=== PATIENT | female | born 1980 ===

== ENCOUNTER 2020-09-16 08:32 | Outpatient (REF) | payer OTHER, SELFPAY ==
[2020-09-16 10:28] LABS: Glucose Urine UA NEG (NEG); Leukocyte Esterase Urine NEG (NEG); Nitrite Urine NEG (NEG); Specific Gravity - Urine 1.025 (1.005-1.025); Urine Blood 2+ (NEG); Urine Ketones NEG (NEG); Urine Protein NEG (NEG-TRACE)
[2020-09-16 10:31] LABS: HIV AB/AG Nonreactive (Nonreactive); HIV Num 1 0.23 S/CO (0.00-0.99); ~HepC Num1 0.13 S/CO (0.00-0.79); ~Hepatitis C Antibody Nonreactive (Nonreactive)
[2020-09-16 10:32] LABS: Alanine Aminotransferase 21 U/L (0-31); Albumin Level 3.9 g/dL (3.5-5.0); Alkaline Phosphatase 51 U/L (39-117); Anion Gap 13 (12-20); Aspartate Amino Transferase 18 U/L (5-31); Bilirubin Total 0.6 mg/dL (0.0-1.0); Blood Urea Nitrogen 11 mg/dL (9-16); Calcium 8.8 mg/dL (8.4-10.2); Carbon Dioxide 24 mmol/L (22-29); Chloride 105 mmol/L (96-108); Cholesterol 174 mg/dL; Estimated Glomerular Filt Rate > 60; Glucose Random 91 mg/dL (60-115); HDL Cholesterol 49 mg/dL; LDL Cholesterol Calculated 110 mg/dl; Lipase 20 U/L (8-78); Potassium 4.5 mmol/l (3.3-5.1); Sodium 137 mmol/L (135-145); Triglycerides 75 mg/dL
[2020-09-16 10:33] LABS: Appearance Urine CLEAR; Color Urine YELLOW
[2020-09-16 10:34] LABS: TSH reflex Free T4 0.99 mIU/mL (0.32-4.0)
[2020-09-16 10:39] LABS: Syphilis Screen Nonreactive (Nonreactive)
[2020-09-16 10:46] LABS: Squamous Epithelial Cell Urine 2+ /LPF; WBC Urine 0 /HPF (0-4)
== END 2020-09-16 08:33 | disposition home or self-care (01) ==
LOC: HO.LAB 08:32
PROVIDERS: PCP Registered Nurse; Visit Provider Registered Nurse
DX: Z00.00 Encounter for general adult medical examination without abnormal findings (principal); L65.9 Nonscarring hair loss, unspecified; R10.13 Epigastric pain; Z11.3 Encounter for screening for infections with a predominantly sexual mode of transmission
CPT/HCPCS: 80053; 80061; 81001; 83690; 84443; 86780; 86803; 87389

== ENCOUNTER → 2020-10-01 09:26 | Outpatient (BNVA) | payer OTHER, SELFPAY | PROVIDERS: PCP Registered Nurse; Visit Provider Physician Assistant | DX: R12 Heartburn (principal); R19.5 Other fecal abnormalities; R19.7 Diarrhea, unspecified; A04.8 Other specified bacterial intestinal infections | CPT/HCPCS: 99212 ==

== ENCOUNTER 2020-10-14 08:44 | Outpatient (REF) | payer OTHER, SELFPAY ==
[2020-10-14 10:10] LABS: MANUAL DIFF FLAG NO
[2020-10-14 10:22] LABS: Basophils Percent Auto 0.4 % (0-2); Hematocrit 36.6 % (37-47); Hemoglobin 12.2 g/dl (12.0-16.0); Imm Gran Abs Auto 0.02 X10*3/uL (0.00-0.03); Imm Gran Pct Auto 0.3 % (0.0-0.4); Lymphocytes Absolute Auto 2.1 X10*3/uL (1.2-4.9); Lymphocytes Percent Auto 26.9 % (20-40); Mean Corpuscular HGB Conc 33.3 g/dl (31.0-35.0); Mean Corpuscular Hemoglobin 30.4 pg (27.0-33.0); Mean Corpuscular Volume 91.3 fL (80-98); Mean Platelet Volume 10.4 fL (9.4-12.3); Monocytes Absolute Auto 0.4 X10*3/uL (0.1-1.2); Monocytes Percent Auto 4.9 % (2-11); Neutrophils Absolute Auto 4.3 X10*3/uL (2.0-8.3); Neutrophils Percent Auto 54.5 % (45-73); Platelet Count 328 X10*3/uL (160-400); Red Blood Count 4.01 X10*6/uL (4.20-5.50); Red Cell Distribution Width 12.6 % (11.0-16.0); White Blood Count 7.9 X10*3/uL (4.8-10.8)
[2020-10-14 11:35] LABS: Erythrocyte Sedimentation Rate 29 MM/HR (0-20)
[2020-10-15 14:07] LABS: Transglutaminase IgA 1 U/mL
[2020-10-15 18:28] LABS: CRP High Sensitivity 4.1 mg/L
[2020-10-17 14:52] LABS: Endomysial IgA Antibody Negative (Negative)
== END 2020-10-14 08:45 | disposition home or self-care (01) ==
LOC: HO.LAB 08:44
PROVIDERS: PCP Registered Nurse; Visit Provider Physician Assistant
DX: R19.7 Diarrhea, unspecified (principal); R19.5 Other fecal abnormalities
CPT/HCPCS: 36415; 83516; 85025; 85652; 86141; 86255; 86256

== ENCOUNTER → 2020-10-22 08:24 | Outpatient (BNVA) | payer OTHER, SELFPAY | PROVIDERS: PCP Registered Nurse; Visit Provider Physician Assistant | DX: Z76.89 Persons encountering health services in other specified circumstances (principal) ==

== ENCOUNTER 2021-10-13 09:22 | Outpatient (REF) | payer SELFPAY ==
[2021-10-13 10:29] LABS: COVID-19 Test Negative (Negative)
== END 2021-10-13 09:23 | disposition home or self-care (01) ==
LOC: HO.LAB 09:22
PROVIDERS: Visit Provider Internal Medicine
DX: Z20.822 Contact with and (suspected) exposure to COVID-19 (principal)
CPT/HCPCS: 36415; 87635; C9803

== ENCOUNTER 2021-10-20 08:47 | Outpatient (REF) | payer SELFPAY ==
[2021-10-20 11:56] LABS: Binax Internal Control QC Valid; Binax Now Covid-19 Ag Negative (Negative)
== END 2021-10-20 08:48 | disposition home or self-care (01) ==
LOC: HO.LAB 08:47
PROVIDERS: Visit Provider Internal Medicine
DX: Z20.822 Contact with and (suspected) exposure to COVID-19 (principal)
CPT/HCPCS: 36415; C9803

== ENCOUNTER 2024-03-03 12:52 | Emergency (ER) | payer OTHER, SELFPAY ==
--- NOTE | ~2024-03-03 | CT_ITS ---
EXAMINATION: CT ABDOMEN AND PELVIS WITHOUT CONTRAST CLINICAL INFORMATION: Rectal bleeding. COMPARISON: 07/08/2017 TECHNIQUE: Multidetector volumetric imaging was performed from the superior aspect of the liver through the pubic symphysis. Sagittal and coronal reformatted images were obtained on the technologist's workstation. This CT examination was performed using dose optimization techniques as appropriate, variously including the following: *Automated exposure control *Adjustment of mA and/or kV according to patient size (this includes techniques or standardized protocols for targeted exams where dose is matched to indication/reason for exam; i.e. extremities or head) *Use of iterative reconstruction technique DLP: 723 mGy-cm FINDINGS: LUNG BASES: The visualized lung bases are unremarkable. LIVER, GALLBLADDER, AND BILIARY TREE: The liver is normal in size, shape, and attenuation. No focal hepatic lesion or biliary ductal dilatation is present. The gallbladder is unremarkable with no evidence of radiopaque gallstones, gallbladder wall thickening, or obvious pericholecystic inflammatory changes. PANCREAS: There is a contour bulge and calcification distal body of the pancreas with increased attenuation relative to the remaining pancreatic parenchyma covering an area approximately 3.1 cm. A similar finding was seen on prior study. SPLEEN: Unremarkable. ADRENAL GLANDS: Unremarkable. KIDNEYS AND URETERS: The kidneys are normal in size, shape, and attenuation. No hydronephrosis, hydroureter, or calculi seen. No perinephric stranding. BLADDER: Unremarkable. GASTROINTESTINAL TRACT: The small and large bowel are unremarkable. The appendix is unremarkable. ABDOMINAL WALL: No significant hernia is appreciated. LYMPH NODES: Normal. VASCULAR: Unremarkable. PELVIC VISCERA: Unremarkable. OSSEOUS STRUCTURES: Unremarkable. CT/CT abdomen pelvis wo IV con IMPRESSION: 1. No acute finding. 2. Contour bulge and calcification distal body of the pancreas with increased attenuation relative to the remaining pancreatic parenchyma. A similar finding was seen on prior study. Fleischner guidelines were followed.
[2024-03-03 13:35] VITALS: BP 127/71; PULSE 94; RESP 18; TEMP 36.2; O2SAT 98; BMI 37.4
--- NOTE | 2024-03-03 13:35 | ED.GENADULT ---
HPI - General Adult General Chief complaint: General Medical Stated complaint: Rectal bleed Time Seen by Provider: 03/03/24 22:21 Source: patient Mode of arrival: ambulatory Limitations: no limitations History of Present Illness HPI narrative: Patient's history of gastritis comes here for bright red rectal bleed off and on for 6 months painless mixed with the stool does have family history of Crohn's disease but patient never had colonoscopy done no blood clot no weight loss no epigastric does have diffuse lower abdominal discomfort no history of hemorrhoids Related Data Home Medications ?Medication ?Instructions ?Recorded ?Confirmed pantoprazole 40 mg tablet,delayed 40 mg PO DAILY 10/01/20 10/22/20 release Previous Rx's ?Medication ?Instructions ?Recorded dicyclomine 10 mg capsule 10 mg PO TID #90 caps 10/01/20 hydrocortisone acetate 25 mg 25 mg PA BID #12 ea 03/04/24 rectal suppository (Anusol-HC) Allergies Allergy/AdvReac Type Severity Reaction Status Date / Time No Known Allergies Allergy Unverified 03/03/24 13:39 [No Known Allergies*] Review of Systems Review of Systems: Yes all other systems are reviewed and are negative [facility] Past Medical History Medical History Change in stool Heartburn Surgical History History of Family History Family History Father Alive and well Mother Alive and well Social History Social History Alcohol intake: never Smoked in Last 30 Days: Yes Use of substances other than those prescribed or required for medical reasons: No Substance Use Type: Marijuana Advance Directives: No Advance Directives on File: No Do you have a plan to hurt others: No Plan Patient : No Physical Exam ED Vital Signs: Vital Signs - 24 hr 03/03/24 13:35 03/03/24 21:11 03/03/24 22:42 Temperature 97.2 F 98.3 F 98.2 F Pulse Rate 94 84 81 Respiratory Rate 18 18 20 Blood Pressure 127/71 134/78 132/76 Pulse Oximetry 98 100 98 Oxygen Delivery Method Room Air Room Air Room Air 03/04/24 02:00 Temperature 98.4 F Pulse Rate 80 Respiratory Rate 16 Blood Pressure 117/50 L Pulse Oximetry 97 Oxygen Delivery Method Room Air BMI result Body Mass Index 37.4 Appearance: Alert. Oriented X3. No acute distress. Eyes: No pallor or icterus ENT: Pharynx normal. Oral Mucosa moist Neck: Normal inspection. Neck supple. CVS: Normal heart rate and rhythm. Pulses normal. Respiratory: No respiratory distress. Equal air entry bilateral, no wheezing/rales/rhonchi Abdomen: Soft no focal tenderness. Bowel sounds are present, no mass palpable, no CVA tenderness Skin: Skin warm and dry. Normal skin color. Normal skin turgor. Extremities: No lower extremity edema. No calf tenderness Neuro: Oriented X 3. Course Course Course Narrative: This is an RME: Additional HPI, ROS, PE not included below will be deferred to primary provider. RME assessment and note performed by: Carlotta Carcamo PA-C This is a 58-eoiz-hwi-female, hx of GERD, who presents to the ER with complaints of blood in stool x 1 month. Pt states that she had an episode of bloody stool last month which resolved. She states that since yesterday, she has had bright red blood in stool. No diarrhea. Reporting some abdominal cramping. Plan: Labs, UA Reevaluation(s) Reevaluation #1: The patient signed out to me by the previous physician pending the results of a CT scan of the abdomen and pelvis. The CT scan is negative. Presumptive diagnosis is rectal bleeding from probable internal hemorrhoids. She will be discharged with a prescription for Anusol. She number of the field return repairer and the general surgeon on-call for follow up. Time: 03:05 Medical Decision Making Lab Data MDM Lab Attestation statement: I reviewed the patient's lab results. 03/03/24 13:42 03/03/24 13:42 Labs: Lab Results 03/03/24 Range/Units 13:42 WBC 8.1 (4.8-10.8) X10*3/uL RBC 4.23 (4.20-5.50) X10*6/uL Hgb 12.7 (12.0-16.0) g/dl Hct 36.8 L (37.0-47.0) % MCV 87.0 (80.0-98.0) fL MCH 30.0 (27.0-33.0) pg MCHC 34.5 (31.0-35.0) g/dl RDW 13.0 (11.0-16.0) % Plt Count 303 (160-400) X10*3/uL MPV 9.9 (9.4-12.3) fL Immature Gran % (Auto) 0.2 (0.0-0.4) % Neut % (Auto) 62.1 (45-73) % Lymph % (Auto) 29.3 (20-40) % [place] % (Auto) 4.1 (2-11) % Eos % (Auto) 3.7 (0-4) % Baso % (Auto) 0.6 (0-2) % Lymph # (Auto) 2.4 (1.2-4.9) X10*3/uL Oxford # (Auto) 0.3 (0.1-1.2) X10*3/uL Eos # (Auto) 0.3 (0.0-0.4) X10*3/uL Baso # (Auto) 0.1 (0.0-0.2) X10*3/uL Abs Immat Gran (auto) 0.02 (0.00-0.03) X10*3/uL Absolute Neuts (auto) 5.0 (2.0-8.3) x10*3/uL Absolute Nucleated RBC 0.000 (0.0-0.012) X10*3/uL Nucleated RBC % (auto) 0.0 (0.0-0.2) /100WBC ESR 43 H (0-20) MM/HR PT 12.2 (11.1-13.3) SEC INR 1.0 (0.9-1.1) APTT 37.7 H (26.0-36.8) SEC Sodium 138 (135-145) mmol/L Potassium 3.8 (3.3-5.1) mmol/L Chloride 106 (96-108) mmol/L Carbon Dioxide 24 (22-29) mmol/L Anion Gap 12 (12-20) BUN 8 L (9-16) mg/dL Creatinine 0.86 (0.5-1.4) mg/dL Estim Creat Clear Calc 86.8 Estimated GFR > 60 Random Glucose 140 H (60-115) mg/dL Calcium 9.8 D (8.4-10.2) mg/dL Magnesium 2.0 (1.6-2.6) mg/dL Total Bilirubin 0.8 (0.0-1.0) mg/dL Direct Bilirubin 0.2 (0.0-0.5) mg/dL AST 24 (5-31) U/L ALT 28 (0-31) U/L Alkaline Phosphatase 62 (39-117) U/L C-Reactive Protein 0.61 H (< or = 0.50) mg/dL Total Protein 7.9 (6.5-8.0) g/dL Albumin 4.1 (3.5-5.0) g/dL Lipase 12 (8-78) U/L Beta HCG, Quant < 2 mIU/mL Discharge Plan Discharge Clinical Impression: Bright red rectal bleeding Patient Disposition: Home, Self-Care Instructions: Rectal Bleeding (ED) Additional Instructions: Possible you have internal hemorrhoids as the cause of bleed Avoid straining/constipation Use Anusol suppository twice daily Follow with field return repairer, Dr. Hernandez, or with Dr. Lockwood, a general surgeon, for further management and evaluation of these episodes of bleeding. Return to the emergency room if worse Prescriptions: New hydrocortisone acetate [Anusol-HC] 25 mg suppository 25 mg PA BID Qty: 12 0RF No Action pantoprazole 40 mg tablet,delayed release (DR/EC) 40 mg PO DAILY dicyclomine 10 mg capsule 10 mg PO TID Qty: 90 0RF Referrals: Andrea Lockwood MD [Physician] - (Probable internal hemorrhoids) Leann Cortes FNP- [Primary Care Provider] - (Rectal bleeding, probably hemorrhoids) Clementine Hernandez MD [Physician] - 2 weeks Print Language: Serbian
[2024-03-03 13:46] LABS: MANUAL DIFF FLAG NO
[2024-03-03 13:50] LABS: Basophils Absolute Auto 0.1 X10*3/uL (0.0-0.2); Basophils Percent Auto 0.6 % (0-2); Eosinophils Absolute Auto 0.3 X10*3/uL (0.0-0.4); Eosinophils Percent Auto 3.7 % (0-4); Hematocrit 36.8 % (37.0-47.0); Hemoglobin 12.7 g/dl (12.0-16.0); Imm Gran Abs Auto 0.02 X10*3/uL (0.00-0.03); Imm Gran Pct Auto 0.2 % (0.0-0.4); Lymphocytes Absolute Auto 2.4 X10*3/uL (1.2-4.9); Lymphocytes Percent Auto 29.3 % (20-40); Mean Corpuscular HGB Conc 34.5 g/dl (31.0-35.0); Mean Platelet Volume 9.9 fL (9.4-12.3); Monocytes Absolute Auto 0.3 X10*3/uL (0.1-1.2); Monocytes Percent Auto 4.1 % (2-11); Neutrophils Percent Auto 62.1 % (45-73); Platelet Count 303 X10*3/uL (160-400); Red Blood Count 4.23 X10*6/uL (4.20-5.50); White Blood Count 8.1 X10*3/uL (4.8-10.8)
[2024-03-03 13:53] LABS: Prothrombin Time 12.2 SEC (11.1-13.3)
[2024-03-03 13:55] LABS: Partial Thromboplastin Time 37.7 SEC (26.0-36.8)
[2024-03-03 14:10] LABS: Alanine Aminotransferase 28 U/L (0-31); Albumin Level 4.1 g/dL (3.5-5.0); Alkaline Phosphatase 62 U/L (39-117); Anion Gap 12 (12-20); Aspartate Amino Transferase 24 U/L (5-31); Bilirubin Direct 0.2 mg/dL (0.0-0.5); Bilirubin Total 0.8 mg/dL (0.0-1.0); Blood Urea Nitrogen 8 mg/dL (9-16); Calcium 9.8 mg/dL (8.4-10.2); Carbon Dioxide 24 mmol/L (22-29); Chloride 106 mmol/L (96-108); Creatinine Clr Calc Pharmacy 86.8; Estimated Glomerular Filt Rate > 60; Glucose Random 140 mg/dL (60-115); Lipase 12 U/L (8-78); Potassium 3.8 mmol/L (3.3-5.1); Sodium 138 mmol/L (135-145); Total Protein 7.9 g/dL (6.5-8.0)
[2024-03-03 14:22] LABS: HCG Quantitative < 2 mIU/mL
[2024-03-03 21:11] VITALS: BP 134/78; PULSE 84; RESP 18; TEMP 36.8; O2SAT 100
[2024-03-03 22:42] VITALS: BP 132/76; PULSE 81; RESP 20; TEMP 36.8; O2SAT 98
[2024-03-03 23:17] LABS: C Reactive Protein 0.61 mg/dL (< or = 0.50)
[2024-03-03 23:53] LABS: Erythrocyte Sedimentation Rate 43 MM/HR (0-20)
[2024-03-04 02:00] VITALS: BP 117/50; PULSE 80; RESP 16; TEMP 36.9; O2SAT 97
[2024-03-04 03:13] VITALS: BP 112/60; PULSE 76; RESP 16; TEMP 36.9; O2SAT 97
== END 2024-03-04 03:15 | disposition home or self-care (01) ==
PROVIDERS: Internal Medicine; Physician Assistant Medical; Emergency Provider Emergency Medicine; PCP Nurse Practitioner Family
DX: K62.5 Hemorrhage of anus and rectum (principal); R10.30 Lower abdominal pain, unspecified; Z79.899 Other long term (current) drug therapy
CPT/HCPCS: 36415; 74176; 80048; 80076; 83690; 83735; 84702; 85025; 85610; 85652; 85730; 86140; 99284

== ENCOUNTER 2024-03-27 13:02 | Outpatient (AMB) | payer OTHER, SELFPAY ==
--- NOTE | 2024-03-27 13:07 | A.OFFPC_ITS ---
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 Required: No Accompanied by: Self / Same As Patient Allergies No Known Allergies [No Known Allergies*] Allergy (Verified 03/27/24 13:23) Medication List - Last Reconciled 03/27/24 by Leann Cortes, [facility] No Known Home Meds Tobacco use date assessed: 03/27/24 Dental Screening Dental Screen Date: 03/27/24 Did you have a dental visit in the last 12 months?: No Did you have a dental problem in the last 6 months where you did not have access to dental care?: No Was dental information given to patient?: Yes HPI HPI Comments History of Present Illness Details Joy 43-year-old female with mild intermitten t asthma, GERD, bilat carpal tunnel, pancreatic calcification, obesity, ANEESH, MDD Status post Health Maintenance: ? Mammo last time > 3 years ago. ? PAP overdue, last time about 3 years ago ? 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 Limited med recs avail to me before todays visit; they have been reviewed Fell out of care; ready to get back to taking care of herself Chronic GERD - sx come and go. was on meds in the past with + effect. Declines meds at this time. Would like to try dietary. Last set of labs 03/03/2024 show a normal CBC, elevated ESR, elevated random glucose 140 otherwise normal CMP, elevated CRP, normal lipase ED visit on this date - referred to GI. [place] [facility] [place]termittent asthma - only occurs when sick. Responds well to PRN NED. Will need refill. Sent today c/o loosing hair, thinning. Wonders if stress related? MDD/ANEESH - has never been on meds or counseling. Would like to start w/ counseling. Sergey SI/HI Obesity - would like to lose weight; has been doing liquid diet and drinking more h20. Other diet attempts w/o success. Would like referral to Metabolic clinic. [facility] Medical History Change in stool Heartburn Surgical History History of Family History Father Alive and well Mother Alive and well Social History Housing: House Alcohol intake: never Patient Tobacco Use Status: Former Tobacco user e-Cigarette/Vaping Use: Never Used Substance Use Type: Marijuana service: No Current occupational status: employed Current occupation: [employer] Cognitive needs: No Hearing needs: No Vision needs: Yes Questionnaire PHQ-9 Over the last 2 weeks, how often have you been bothered by any of the following problems? 1. Little interest or pleasure in doing things: more than half the days 2. Feeling down, depressed, or hopeless: more than half the days 3. Trouble falling or staying asleep, or sleeping too much: several days 4. Feeling tired or having little energy: more than half the days 5. Poor appetite or overeating: more than half the days 6. Feeling bad about yourself - or that you are a failure or have let yourself or your family down: nearly every day 7. Trouble concentrating on things, such as reading the newspaper or watching television: several days 8. Moving or speaking so slowly that other people could have noticed. Or the opposite - being so fidgety or restless that you have been moving around a lot more than usual: not at all 9. Thoughts that you would be better off or of hurting yourself in some way: several days Total score: 14 Depression Screening Interpretation: Positive Depression Screening Follow-up: Existing condition and Community Mental Health Worker F/U Depression Screening Done: Yes 99828 - PHQ-9 Billing: Yes Source: Developed by Drs. Raman Bates, Homa Noguera, Jakob Denton and colleagues, with an educational amberly from [employer]. Thrive Questionnaire Date Thrive assessed: 03/27/24 I am a: Patient What is your living situation today?: I have a steady place to live Within the past 12 months, did the food you bought not last and you didn't have the money to get more?: Never true Within the past 12 months, did you worry whether your food would run out before you got money to buy more?: Never true Do you have trouble paying for medicines?: No Do you have trouble getting transportation to medical appointments?: No Do you have trouble paying your heating and electricity bill?: No Do you have trouble taking care of your child, family member or friend?: No Do you have trouble with day-to-day activities such as bathing, preparing meals, shopping, managing finances, etc.?: No Are you currently unemployed and looking for a job?: No Are you interested in more education?: No Please select the resources that you would like help with: None Currently or been in a relationship where the following occur: no concerns reported THRIVE Score: 0 AUDIT C Alcohol Use Questionnaire (AUDIT-C) 1. How often do you have a drink containing alcohol?: Never 3. How often do you have six or more drinks on one occasion?: Never Total Score: 0 Score Reviewed/Action Taken: Yes ANEESH-7 AMB Questionnaire ANEESH-7 Date ANEESH - 7 assessed: 03/27/24 Feeling nervous, anxious, or on edge: 1 = Several days Not being able to stop or control worryin = More than half the days Worrying too much about different things: 2 = More than half the days Trouble relaxin = Several days Being so restless that it is hard to sit still: 0 = Not at all Becoming easily annoyed or irritable: 2 = More than half the days Feeling afraid as if something awful might happen: 2 = More than half the days Total ANEESH-7 score (0-4 normal; 5-9 mild; 10-14 moderate; 15-21 severe): 10 Source: Developed by Drs. Raman Bates, Homa Noguera, Jakob Denton and colleagues, with an educational amberly from [employer]. ANEESH-7 Assessment Billing ANEESH-7 Assessment Tool: ANEESH-7 Assessment 30805 ACT Questionnaire In the past 4 weeks, how much of the time did your asthma keep you from getting as much done at work, school or at home?: None of the time During the past 4 weeks, how often have you had shortness of breath?: Not at all During the past 4 weeks, how often did your asthma symptoms wake you up at night or earlier than usual in the morning?: Not at all During the past 4 weeks, how often have you had to use your rescue inhaler or nebulizer medication?: Not at all How would you rate your asthma control during the past 4 weeks?: Completely controlled ACT Interpretation: Negative Score: 25 Review of Systems Const Details: Constitutional: Denies fever. Skin: Denies rash. Eye: Denies eye pain. ENMT: Denies sore throat and nasal congestion. Respiratory: Denies shortness of breath and cough. Gastrointestinal: Denies nausea, vomiting or abdominal pain. Cardiovascular: Denies chest pain and syncope. Genitourinary: Denies dysuria. Musculoskeletal: Denies back pain and extremity pain. Neurologic: Denies headaches, confusion, and weakness. Psychiatric: Denies suicidal thoughts and substance abuse. Allergy/ Immunologic: Denies impaired immunity Physical exam (Primary Care) Vital Signs: Last Vital Signs Temp 97.8 F 03/27/24 13:08 Pulse 95 03/27/24 13:08 Resp 13 03/27/24 13:08 BP 114/66 03/27/24 13:08 Pulse Ox 98 03/27/24 13:08 Oxygen Delivery Method Room Air 03/27/24 13:08 BMI result Body Mass Index 36.7 BMI Assessment/Plan discussion: High BMI High, discussed plan: lifestyle Tobacco/Smoking Status: Tobacco use Status Tobacco use date assessed 03/27/24 03/27/24 13:17 Patient Tobacco Use Status Former Tobacco user 03/27/24 13:17 e-Cigarette/Vaping Use Never Used 03/27/24 13:17 PHQ-9: PHQ-9 Score PHQ-9: Total score 14 03/27/24 13:18 Depression Screening Interpretation: Positive Depression Screening Follow-up: Existing condition and Community Mental Health Worker F/U Thrive Assessment: Date of Thrive Assessment Date Thrive assessed 03/27/24 03/27/24 13:17 Currently or been in a relationship where the following occur: no concerns reported Const Other: General: Well developed, well nourished, in no acute distress. Appears stated age. Head: Normocephalic, atraumatic. Eyes: Pupils are equal, round and reactive to light and accommodation. Conjunctivae are clear. Vision grossly normal. Ears: TMs clear AU, EACS WNL Nose: Patent, without discharge. Mouth: There are no ulcers or lesions noted. No inflammation, no post nasal drip, no plaques nor exudates. Neck: Supple, no adenopathy or thyromegaly. Lungs: Clear to auscultation bilaterally. No rales, rhonchi or wheeze noted. Good air flow in all jorge. Heart: Regular rate and rhythm. No murmurs, click, rubs or gallops are noted. Abdomen: Bowel sounds present in all quadrants. The abdomen is soft, nontender, with no masses or organomegaly noted. No hernias are noted. Musculoskeletal: Joints are nontender, without swelling, redness, or effusions. Range of motion is observed to be normal. Pulses: Peripheral pulses are equal and palpable bilaterally. Extremities: No clubbing, cyanosis nor edema is noted. Neurologic: Gait and station normal. Cranial Nerves 2-12 intact. Motor strength grossly symmetrical and intact. No sensory loss. Balance normal. Skin: No ulcers or lesions noted. Turgor is good. Skin color is good. Hair and nails are without abnormalities. Psych: Normal eye contact, affect and mood appropriate, and normal interactions. Patient is alert and appropriate to context. Assessment and Plan Assessment & Plan (1) Encounter for general adult medical examination without abnormal findings: Comment: deferred labs at this time as she will get these done at [facility]. clinic if this does not happen for some reason advised to come back sooner to check labs Code(s): Z00.00 - Encounter for general adult medical examination without abnormal findings (2) Severe obesity with body mass index (BMI) of 36.0 to 36.9 with serious comorbidity: Comment: referred to metabolic clinic Code(s): E66.01 - Morbid (severe) obesity due to excess calories; Z68.36 - Body mass index [BMI] 36.0-36.9, adult (3) MDD (major depressive disorder), recurrent episode: Comment: referred to counseling declined meds at this time Code(s): F33.9 - Major depressive disorder, recurrent, unspecified Qualifiers: Major depression episode severity: mild Qualified Code(s): F33.0 - Major depressive disorder, recurrent, mild (4) ANEESH (generalized anxiety disorder): Comment: see MDD Code(s): F41.1 - Generalized anxiety disorder (5) Cervical cancer screening: Comment: refer to PATIENTS TRANSPORTER Code(s): Z12.4 - Encounter for screening for malignant neoplasm of cervix (6) Mild intermittent asthma in adult without complication: Comment: only flares when ill refilled NED Code(s): J45.20 - Mild intermittent asthma, uncomplicated (7) Chronic GERD: Comment: referred to GI wishes to do dietary changes not meds Code(s): K21.9 - Gastro-esophageal reflux disease without esophagitis Orders: Orders MM screening mammo BI Today Z12.31 - Encounter for screening mammogram for malignant neoplasm of breast Referrals Counseling Referral F33.9 - Major depressive disorder, recurrent, unspecified, F41.1 - Generalized anxiety disorder Metabolic Clinic Referral E66.01 - Morbid (severe) obesity due to excess calories, Z68.36 - Body mass index [BMI] 36.0-36.9, 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 Sooner if needed. Coding Level of Care Code New Pt Prev Care 40-64y(30969) Diagnoses Encounter for general adult medical examination without abnormal findings Z00.00 Severe obesity with body mass index (BMI) of 36.0 to 36.9 with serious comorbidity E66.01; Z68.36 Mild episode of recurrent major depressive disorder F33.0 Major depression episode severity: mild ANEESH (generalized anxiety disorder) F41.1 Cervical cancer screening Z12.4 Mild intermittent asthma in adult without complication J45.20 Chronic GERD K21.9 Additional Codes ANEESH-7 Assessment Billing - ANEESH-7 Assessment Tool: ANEESH-7 Assessment [id number] ([id number])
[2024-03-27 13:08] VITALS: BP 114/66; PULSE 95; RESP 13; TEMP 36.6; O2SAT 98; BMI 36.7
== END 2024-03-27 13:38 | disposition home or self-care (01) ==
PROVIDERS: PCP Nurse Practitioner Family; Visit Provider Nurse Practitioner Family
DX: Z00.00 Encounter for general adult medical examination without abnormal findings (principal); E66.01 Morbid (severe) obesity due to excess calories; F33.0 Major depressive disorder, recurrent, mild; Z68.36 Body mass index [BMI] 36.0-36.9, adult; F41.1 Generalized anxiety disorder; J45.20 Mild intermittent asthma, uncomplicated; K21.9 Gastro-esophageal reflux disease without esophagitis
CPT/HCPCS: 99386

== ENCOUNTER 2024-04-07 15:24 | Outpatient (REF) | payer OTHER, SELFPAY ==
--- NOTE | ~2024-04-07 | MM_ITS ---
EXAMINATION: MM SCREENING DIGITAL BREAST TOMOSYNTHESIS, BILATERAL CLINICAL INFORMATION: Screening. Asymptomatic. COMPARISON: Mammography: This study is compared with prior exams dating back to 2013. TECHNIQUE: Digital breast tomosynthesis is performed in both the craniocaudal and mediolateral oblique views along with computer-aided detection (CAD). Synthesized 2D images are generated from the tomosynthesis. FINDINGS: There are scattered areas of fibroglandular density (ACR BI-RADS breast composition Category b). There are no significant masses, abnormal calcifications, or other abnormalities. There is a biopsy tissue marker in the left breast. MM/MM tomosynthesis screening BI IMPRESSION: No mammographic evidence of malignancy. ASSESSMENT: BI-RADS BI-RADS 2 - Benign Findings RECOMMENDATION: Routine annual mammography screening. 1 year F/U This examination should not preclude the clinical evaluation of a suspicious palpable abnormality. This patient's information was entered into a reminder system with a target due date for their next mammogram.
== END 2024-04-07 15:25 | disposition home or self-care (01) ==
LOC: HO.MAMMO 15:24
PROVIDERS: PCP Nurse Practitioner Family; Visit Provider Nurse Practitioner Family
DX: Z12.31 Encounter for screening mammogram for malignant neoplasm of breast (principal)
CPT/HCPCS: 77063; 77067

== ENCOUNTER → 2024-04-07 15:30 | Outpatient (BNV) | payer OTHER, SELFPAY | PROVIDERS: PCP Nurse Practitioner Family; Visit Provider Radiology Diagnostic Radiology | DX: Z12.31 Encounter for screening mammogram for malignant neoplasm of breast (principal) | CPT/HCPCS: 77063; 77067 ==

== ENCOUNTER 2024-06-23 10:52 | Outpatient (AMB) | payer OTHER, SELFPAY ==
--- NOTE | 2024-06-23 11:09 | MHC.OFFVIS ---
Vital Signs 06/23/24 11:11 Height 5 ft 1 in Weight 192 lb BMI 36.3 BP 110/66 Intake Visit Reasons: HAND SPINNER annual exam/referral Intake Note: Last pap 3 yrs normal hx per pt @[facility] pt c/o left side pelvic pain for few yrs on and off Macadam Raker: Macadam Raker Present (Clare) Allergies No Known Allergies [No Known Allergies*] Allergy (Verified 06/23/24 11:11) Is last menstrual period known: Yes Last menstrual period: 05/30/24 HPI Comments Details: She is a premenopausal woman presenting for new patient annual examination. Doing well with no concerns. Recent dysparuenia, vaginal dryness, occasional left sided pain, no urinary or bowel symptoms. History of prior 16 years ago. She tries to eat healthy and stays active with exercise. Regular monthly menses. Currently is sexually active, using withdrawal method, with long-term monogamous partner. She denies vaginal itching and irritation. Denies family history of breast or ovarian cancer. Family history of colon cancer-paternal grandfather. Last pap smear approximately 3 years ago, negative. Mammogram: 2023. 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 Cognitive needs: No Hearing needs: No Vision needs: Yes Female Reproductive History Menstrual Duration of menses: 3-5 days Date of last menstrual period: 05/30/24 control method: none Total pregnancies: 1 Full term: 1 Number of Living Children: 1 Date of Mammogram: 04/07/24 (Birad 2) Review of Systems Const All systems reviewed & are unremarkable except as noted in HPI and below Reports as per HPI Eyes Reports no additional complaints ENT Reports no additional complaints Card Reports no additional complaints Resp Reports no additional complaints GI Reports as per HPI and Reports no additional complaints Reports as per HPI Musc Reports no additional complaints Skin/Breast Reports as per HPI Neuro Reports no additional complaints Psych Reports no additional complaints Endo Reports no additional complaints Gabo/Lymph Reports no additional complaints Aller/Immun Reports no additional complaints Physical Exam Vital Signs: Last Vital Signs BP 110/66 06/23/24 11:11 BMI result Body Mass Index 36.3 Const General: cooperative, healthy appearing, no acute distress, well developed and alert Orientation/consciousness: patient oriented x3 HEENT Head: Yes normal to inspection Eyes General: appearance normal, both eyes and all related structures Neck Neck: Yes normal visual inspection Thyroid: Thyroid normal Chest Chest palpation & inspection: normal inspection of the chest and other (no puckering, dimpling, peau de orange, retraction, discharge, masses) Breast/axilla inspection: normal inspection of the breasts Breast/axilla palpation: normal palpation of the breasts Resp Effort & Inspection: normal respiratory effort GI Inspection: Yes normal to inspection Palpation (GI): Soft to palpation Rectal Exam - Female: deferred General: Yes bladder normal to palpation External Female Exam: normal external appearance and normal appearance of the urethra Speculum Exam - Vagina: normal appearance of the vagina, normal palpation and normal vaginal discharge Speculum Exam - Cervix: normal appearance of the cervix and normal palpation Bimanual exam- vagina & uterus: normal bimanual exam, normal palpation, uterine size normal, bladder normal to palpation, normal palpation and non-tender Bimanual Exam- Adnexa, other: no masses and Other (Reports slight tenderness with deep palpation) Skin General skin exam: no rashes or lesions noted Rashes: no rashes Neuro General: patient oriented x3 Cognition (Neuro): normal cognition Extrem General: Yes normal to inspection Psych Attitude: cooperative Thought process: Normal thought process present Results AMB Urinalysis, Automated UA Leukoctes 0 Lana/uL Last Edit by AMAYA Solares on 06/23/24 11:42 UA Nitrite Negative Last Edit by AMAYA Solares on 06/23/24 11:42 UA Urobilinogen 0 mg/dL Last Edit by AMAYA Solares on 06/23/24 11:42 UA Protein 0.5 mg/dL Last Edit by Manju Becerril AMAYA on 06/23/24 11:42 UA pH 7.5 Last Edit by Manju Becerril Ryne on 06/23/24 11:42 UA Blood 1 Ray/uL Last Edit by Manju Becerril Ryne on 06/23/24 11:42 UA Specific [place] 1.010 Last Edit by Manju Becerril Ryne on 06/23/24 11:42 UA Ketone Negative Last Edit by Manju Becerril [facility] on 06/23/24 11:42 UA Bilirubin 0 mg/dL Last Edit by Manju Becerril [facility] on 06/23/24 11:42 UA Glucose 0 mg/dL Last Edit by Manju Becerril [facility] on 06/23/24 11:42 AMB Test Urine AMB Test Urine Negative Last Edit by Manju Becerril AMAYA on 06/23/24 11:42 Assessment & Plan Assessment & Plan (1) Encounter for well woman exam with routine gynecological exam: Code(s): Z01.419 - Encounter for gynecological examination (general) (routine) without abnormal findings Category: Medical (2) Pelvic pain: Code(s): R10.2 - Pelvic and perineal pain Category: Medical (3) Dyspareunia, female: Code(s): N94.10 - Unspecified dyspareunia Category: Medical Plan Discussed: Current recommendations for pap smears per ASCCP guidelines. Pap smear obtained. Breast awareness and periodic breast exams. Maintain a healthy lifestyle including a well balanced diet and routine exercise. Pelvic pain workup to include pelvic ultrasound, GC chlamydia, BV panel, and urine dip. Follow up in person for test results. Reviewed common causes for pelvic pain which can originate from buffer operator, bowel, bladder, musculoskeletal, adhesions, and other, and unknown. Mammogram yearly. Colonoscopy >45, or at risk sooner. Has appointment scheduled. Patient verbalizes understanding and agrees to the plan of care. She was given opportunity to ask questions and all questions were answered to the best of my ability. RTO in one year for annual buffer operator examination. This note is constructed using voice recognition software. While every effort has been made to ensure accuracy, industrial court magistrate errors may have been included. Orders: Orders Bacterial Vaginosis Panel Today N94.10 - Unspecified dyspareunia, R10.2 - Pelvic and perineal pain CT NG by PCR Today N94.10 - Unspecified dyspareunia, R10.2 - Pelvic and perineal pain US pelvic and transvaginal Today N94.10 - Unspecified dyspareunia, R10.2 - Pelvic and perineal pain PAP + HPV E6/E7 rfx 18/45 Today Z01.419 - Encounter for gynecological examination (general) (routine) without abnormal findings Coding Level of Care Code New Pt Prev Care 40-64y(34632) Diagnoses Encounter for well woman exam with routine gynecological exam Z01.419 Pelvic pain R10.2 Dyspareunia, female N94.10
[2024-06-23 11:11] VITALS: BP 110/66; BMI 36.3
== END 2024-06-23 12:55 | disposition home or self-care (01) ==
PROVIDERS: PCP Nurse Practitioner Family; Visit Provider Advanced Practice Midwife
DX: Z01.419 Encounter for gynecological examination (general) (routine) without abnormal findings (principal); R10.2 Pelvic and perineal pain; N94.10 Unspecified dyspareunia
CPT/HCPCS: 99386

== ENCOUNTER 2024-06-23 10:52 | Outpatient (REF) | payer OTHER, SELFPAY | END 2024-06-23 10:53 | disposition home or self-care (01) | LOC: HO.LAB 10:52 | PROVIDERS: PCP Nurse Practitioner Family; Visit Provider Advanced Practice Midwife | DX: R10.2 Pelvic and perineal pain (principal); N94.10 Unspecified dyspareunia | CPT/HCPCS: 81003; 81025 ==

== ENCOUNTER 2024-06-23 11:31 | Outpatient (REF) | payer OTHER, SELFPAY ==
[2024-06-27 04:53] LABS: CT PCR NOT DETECTED (Not Detect.); NG PCR NOT DETECTED (Not Detect.)
[2024-06-27 11:12] LABS: Bacterial Vaginosis PCR POSITIVE (Negative); Candida Group PCR NOT DETECTED (Not Detect); Candida glab krusei PCR NOT DETECTED (Not Detect); Trichomonas vaginalis PCR NOT DETECTED (Not Detect)
[2024-06-28 21:03] LABS: HPV mRNA E6/E7 Not Detected (Not Detected)
== END 2024-06-23 11:32 | disposition home or self-care (01) ==
LOC: HO.LNP 11:31
PROVIDERS: Visit Provider Advanced Practice Midwife
DX: Z01.419 Encounter for gynecological examination (general) (routine) without abnormal findings (principal); R10.2 Pelvic and perineal pain; N94.10 Unspecified dyspareunia
CPT/HCPCS: 0352U; 87491; 87591; 87624; 88175

== ENCOUNTER 2024-06-30 10:35 | Outpatient (REF) | payer OTHER, SELFPAY ==
--- NOTE | ~2024-06-30 | US_ITS ---
EXAMINATION: US PELVIS CLINICAL INFORMATION: Dyspareunia. COMPARISON: None available. TECHNIQUE: Ultrasound of the pelvis is performed using both transabdominal and transvaginal transducers along with Doppler. Transvaginal imaging is performed due to inadequate visualization transabdominally. FINDINGS: UTERUS: The uterus is anteverted and measures 8.9 x 4.6 x 4.9 cm. The double wall endometrial thickness is 7 mm. The uterus is smooth in contour and has normal myometrial echogenicity. No visible fibroid. Nabothian cysts are present in the cervix. ADNEXA: Both ovaries are visualized. Bilateral benign follicular cysts are present. There is normal color flow to the adnexa. There is no ovarian torsion. Small amount of free fluid in the cul-de-sac. Right ovary measures 3.4 x 1.6 x 1.7 cm for a volume of 4.8 mL. Left ovary measures 3.7 x 2.5 x 3.0 cm for a volume of 14.6 mL. US/US pelvic and transvaginal IMPRESSION: Unremarkable pelvic ultrasound. Electronically signed by: John Foley MD 07/05/2024 05:05 PM EDT
== END 2024-06-30 10:36 | disposition home or self-care (01) ==
LOC: HO.US 10:35
PROVIDERS: PCP Nurse Practitioner Family; Visit Provider Advanced Practice Midwife
DX: N94.10 Unspecified dyspareunia (principal); R10.2 Pelvic and perineal pain
CPT/HCPCS: 76830; 76856

== ENCOUNTER 2025-01-15 14:18 | Outpatient (AMB) | payer OTHER, SELFPAY ==
--- NOTE | 2025-01-15 14:22 | MHC.OFFVIS ---
Vital Signs 01/15/25 14:23 Height 5 ft 1 in Weight 206 lb 5.643 oz BMI 39.0 BP 118/58 L Blood Pressure Location Rt brachial Position Sitting Pulse 94 Pulse Source Pulse Oximeter Pulse Oximetry (%) 99 Oxygen Delivery Method Room Air Intake Visit Reasons: Melena consult. Seen by DANIEL 2020. Intake Note: NEW PATIENT for for re-est care. Pt last seen by DANIEL - 2020. Melena/Hematochezia reported per pt. Prior hx of colo/egd? N Chief Complaint; C/O rectal bleeding intermittently, frequent GI upset, epigastric pain, no heartburn reported. Pt also reports FMHx of crohn's and stomach cancer. Only tx attempted to this point is tums w/o relief. 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 Seen by DANIEL 2020.: Details: LAST VISIT WITH EZIO ALFARO 10/22/2020 40-year-old female follows up with persistent acid reflux- will submit stool antigen for H pylori-today after discontinuing PPI for 2 weeks prior.She had discontinue pantoprazole for 2 weeks prior to submitting this, she does not have as good coverage as when she was taking pantoprazole.-she will begin pantoprazole get. She does gets numbness, tingling and pain in her hands she is being evaluated for carpal tunnel-@ [facility] She did have blood work shows elevated CRP. She has no other GI symptoms. She has a good appetite and normal bowel pattern no fever, chills, abdominal pain, rectal bleeding nausea or vomiting ED VISIT 03/03/2024 Course Course Course Narrative: This is an RME: Additional HPI, ROS, PE not included below will be deferred to primary provider. RME assessment and note performed by: Carlotta Carcamo PA-C This is a [id number]-female, hx of GERD, who presents to the ER with complaints of blood in stool x 1 month. Pt states that she had an episode of bloody stool last month which resolved. She states that since yesterday, she has had bright red blood in stool. No diarrhea. Reporting some abdominal cramping. Plan: Labs, UA Reevaluation(s) Reevaluation #1: The patient signed out to me by the previous physician pending the results of a CT scan of the abdomen and pelvis. The CT scan is negative. Presumptive diagnosis is rectal bleeding from probable internal hemorrhoids. She will be discharged with a prescription for Anusol. She number of the tractor mechanic apprentice and the general surgeon on-call for follow up. TODAY'S VISIT Patient is here today for requested visit. Previously seen by Ezio NOBLE. currently she is not taking any PPIs. Reports epigastric pain postprandially. Denies having any reflux. Reports abdominal bloating with almost anything she eats. As her previous providers note patient was sent to be tested for H pylori via stool sample, however patient never suspended the test. She denies any nausea or vomiting. Patient reports family history of Crohn's disease as well as stomach cancer. Patient has tried Tums in the past few weeks to help with her symptoms without any effect. Patient denies any constipation or diarrhea. Denies any mucus in her stools. Occasional blood in her stools after bowel movement. Patient was seen in February of 2024 (see above note) in the ER for rectal bleed. Try to make multiple attempts for appointment, however her GI provider was out on medical leave. 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 Cognitive needs: No Hearing needs: No Vision needs: Yes Review of Systems Const Denies weight gain and Denies weight loss ENT Reports no additional complaints, Denies dysphagia and Denies odynophagia Card Reports no additional complaints Resp Reports no additional complaints GI Reports abdominal pain (Epigastric), Denies belching, Denies melena, Reports bloating, Reports hematochezia (Occasional), Denies change in bowel habits, Denies dysphagia, Denies excessive flatus, Reports dyspepsia, Denies heartburn, Denies diarrhea, Denies loose stools, Denies nausea, Denies odynophagia and Denies vomiting Reports no additional complaints Musc Reports no additional complaints Neuro Reports no additional complaints Psych Reports no additional complaints Endo Reports no additional complaints Physical Exam Vital Signs: Last Vital Signs Pulse 94 01/15/25 14:23 BP 118/58 L 01/15/25 14:23 Pulse Ox 99 01/15/25 14:23 Oxygen Delivery Method Room Air 01/15/25 14:23 BMI result Body Mass Index 39.0 Const General: healthy appearing, no acute distress and well developed Nutritional Appearance: well nourished and obese Orientation/consciousness: patient oriented x3 Resp Effort & Inspection: normal respiratory effort, able to speak in complete sentences, no tracheal deviation and symmetric chest movement Auscultation: clear to auscultation bilaterally Cardio Rate: regular rate GI Inspection: Yes normal to inspection, No distended and Yes obesity Palpation (GI): Soft to palpation, not firm, nontender and No hepatosplenomegaly present Auscultation: normal bowel sounds General: Yes no CVA tenderness Back/Spine/Pelvis Back: no CVA tenderness Skin General skin exam: elasticity normal, turgor normal and dry skin Neuro General: patient oriented x3 Psych Appearance: grossly normal Mental Status: mental status grossly normal Assessment & Plan Assessment & Plan (1) Chronic GERD: Code(s): K21.9 - Gastro-esophageal reflux disease without esophagitis Category: Medical (2) Heartburn: Code(s): R12 - Heartburn Category: Medical (3) Postprandial abdominal bloating: Code(s): R14.0 - Abdominal distension (gaseous) (4) Rectal bleed: Code(s): K62.5 - Hemorrhage of anus and rectum (5) Postprandial epigastric pain: Code(s): R10.13 - Epigastric pain Plan Patient is not on any PPI and has not had anything to eat or drink in the past hour. Will do H pylori test in the office today. Will check for celiac and check lipase to rule out chronic pancreatitis. Patient reports family history of Crohn's disease will check CRP and fecal calprotectin. Patient reports no constipation, however her bowels are not regular sometimes she goes to the bathroom and sometimes it slows down what she feels like. Will check thyroid study, vitamin D, B12, folate. Patient also reports epigastric pain and sometimes pain in the right upper quadrant will check liver enzymes. Patient will be started on pantoprazole as she took that in the past and has worked for her. Patient will call if she will not be able to get it covered. Patient was encouraged to follow low FODMAP diet. List of food recommended as well as list of food to avoid given to patient. Increase fluid intake and activity to promote better bowel motility. Follow-up in the office in 3 months. We will discuss going for possible upper endoscopy and colonoscopy if she continues to have rectal bleed and pending diagnosis for IBD. She is agreeable to this plan and verbalizes understanding of instructions. She was given the opportunity to ask questions and all questions answered. Thank you for allowing me to participate in her care Orders: Orders H Pylori Breath Test 01/15/25 K21.9 - Gastro-esophageal reflux disease without esophagitis Calprotectin, Fecal 01/15/25 R15.9 - Full incontinence of feces C Reactive Protein 01/15/25 K58.9 - Irritable bowel syndrome, unspecified Transglutaminase IgA 01/15/25 R10.9 - Unspecified abdominal pain TSH reflex Free T4 01/15/25 K59.00 - Constipation, unspecified Vitamin B12 and Folate 01/15/25 R19.7 - Diarrhea, unspecified Vitamin D 25-OH (D2 and D3) 01/15/25 E55.9 - Vitamin D deficiency, unspecified Lipase 01/15/25 R10.9 - Unspecified abdominal pain Liver Panel 01/15/25 R74.01 - Elevation of levels of liver transaminase levels Medications: New pantoprazole take one tablet half an hour before breakfast 40 mg PO DAILY 90 tabs 2RF K21.9 - Gastro-esophageal reflux disease without esophagitis Coding Level of Care Code New Pt Level 4 (74514) Diagnoses Chronic GERD K21.9 Heartburn R12 Postprandial abdominal bloating R14.0 Rectal bleed K62.5 Postprandial epigastric pain R10.13 Time Spent (min) 50 Comment 35 minutes spent with patient and additional 15 minutes spent reviewing her records
[2025-01-15 14:23] VITALS: BP 118/58; PULSE 94; O2SAT 99; BMI 39.0
== END 2025-01-15 15:27 | disposition home or self-care (01) ==
LOC: HO.HGI 14:19
PROVIDERS: PCP Nurse Practitioner Family; Visit Provider Nurse Practitioner Family
DX: K21.9 Gastro-esophageal reflux disease without esophagitis (principal); R12 Heartburn; K62.5 Hemorrhage of anus and rectum
CPT/HCPCS: 99204

== ENCOUNTER 2025-01-15 14:18 | Outpatient (REF) | payer OTHER, SELFPAY ==
[2025-01-15 17:38] LABS: Folate 4.8 ng/mL (> or = 4.0); Vitamin B12 635 pg/mL (200-900)
[2025-01-15 19:14] LABS: Alanine Aminotransferase 23 U/L (0-31); Albumin Level 3.9 g/dL (3.5-5.0); Alkaline Phosphatase 60 U/L (39-117); Aspartate Amino Transferase 23 U/L (5-31); Bilirubin Direct 0.1 mg/dL (0.0-0.5); Bilirubin Total 0.3 mg/dL (0.0-1.0); C Reactive Protein 0.33 mg/dL (< or = 0.50); Lipase 15 U/L (8-78); Total Protein 7.4 g/dL (6.5-8.0)
[2025-01-15 19:33] LABS: TSH reflex Free T4 2.13 uIU/mL (0.32-4.0)
[2025-01-16 09:24] LABS: H Pylori Breath Test Positive (Negative)
[2025-01-17 21:58] LABS: Transglutaminase IgA <1.0 U/mL
[2025-01-19 15:54] LABS: Vitamin D 25-OH, D2 <4 ng/mL; Vitamin D 25-OH, D3 8 ng/mL; Vitamin D 25-OH, Total 8 ng/mL (30-100)
== END 2025-01-15 14:19 | disposition home or self-care (01) ==
LOC: HO.LAB 14:18
PROVIDERS: PCP Nurse Practitioner Family; Visit Provider Nurse Practitioner Family
DX: K21.9 Gastro-esophageal reflux disease without esophagitis (principal); E55.9 Vitamin D deficiency, unspecified; K59.00 Constipation, unspecified; R10.9 Unspecified abdominal pain; K58.9 Irritable bowel syndrome, unspecified; R74.01 Elevation of levels of liver transaminase levels; R19.7 Diarrhea, unspecified
CPT/HCPCS: 36415; 80076; 82306; 82607; 82746; 83013; 83690; 84443; 86140; 86364

== ENCOUNTER 2025-03-13 15:38 | Outpatient (AMB) | payer OTHER, SELFPAY ==
--- NOTE | 2025-03-13 15:46 | A.OFFPC_ITS ---
Vital Signs 03/13/25 16:59 Height 5 ft 1 in Weight 205 lb BMI 38.7 Intake Visit Reasons: ozempic consultation Intake Note: Telehealth weight loss concern Marketing Programs Specialist Required: No Allergies No Known Allergies [No Known Allergies*] Allergy (Verified 03/13/25 16:59) Medication List - Last Reconciled 03/13/25 by Leann Cortes, DRAIN CLEANER PLUMBER-BC albuterol sulfate 90 mcg/actuation 2 puffs inhalation Q4-6H PRN 30 days bismuth subcit H-joownasqy-bdh 140-125-125 mg (Pylera) 3 caps PO QID 14 days cholecalciferol (vitamin D3) 125 mcg PO DAILY minoxidil 1.25 mg PO DAILY pantoprazole 40 mg PO DAILY Tobacco use date assessed: 03/13/25 Dental Screening Dental Screen Date: 03/13/25 Did you have a dental visit in the last 12 months?: Yes Did you have a dental problem in the last 6 months where you did not have access to dental care?: No Was dental information given to patient?: Patient has dentist HPI HPI Comments History of Present Illness Details Joy 44-year-old female with mild intermitten t asthma, GERD, bilat carpal tunnel, pancreatic calcification, obesity, ANEESH, MDD Status post Obesity, unable to lose weight Affecting mood and causing pain Would like help BMI 38.7 Plan: [place] [facility] Due for CPE anytime after 03/28/25, message sent to office to coordinate Telehealth Attestation The documentation for this telehealth visit accurately represents the conversation and care provided during the session via phone. The patient has been explained that this is an interactive (audio/video) telehealth encounter and what that consists of. The patient understands and wishes to proceed. [employer] platform was used. Total time spent caring for the patient today was 15 minutes. This includes time spent before the visit reviewing the chart, time spent during the visit, and time spent after the visit on documentation, reviewing laboratory results, diagnostic imaging, medications, performing a medically necessary evaluation, counseling on diagnoses, care coordination, ordering appropriate tests, ordering appropriate medications, review of tests performed by other providers, reporting test results with the patient, communication with other healthcare providers. 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 Raman Bates, Homa Noguera, Jakob Denton and colleagues, with an educational amberly from [employer]. Physical exam (Primary Care) BMI result Body Mass Index 38.7 BMI Assessment/Plan discussion: High BMI High, discussed plan: lifestyle Tobacco/Smoking Status: Tobacco use Status Tobacco use date assessed 03/13/25 03/13/25 15:48 Patient Tobacco Use Status Former Tobacco user 03/13/25 15:48 e-Cigarette/Vaping Use Never Used 03/13/25 15:48 Thrive Assessment: Date of Thrive Assessment Date Thrive assessed 03/27/24 03/13/25 15:48 Telehealth Telehealth Telehealth Platform: [facility] Location of provider rendering services: practice address Location of patient: address on file Patient Identification confirmed using: Name, : Yes Telehealth method: voice only Patient verbally consented to treatment: Yes Patient verbally consented to billing insurance company: Yes Patient informed of any privacy concerns related to visit: Yes Minutes spent on Phone/Video with Pt.: 7 Coding Level of Care Code Tele Est Pt Level 2 (55059) Complex EM visit Add On G2211 Diagnoses Obesity (BMI 30-39.9) E66.9 Assessment & Plan Assessment & Plan (1) Obesity (BMI 30-39.9): Code(s): E66.9 - Obesity, unspecified Category: Medical Plan . Orders: Referrals Medical Weight Management Referral E66.9 - Obesity, unspecified
[2025-03-13 16:59] VITALS: BMI 38.7
== END 2025-03-13 17:08 | disposition home or self-care (01) ==
LOC: HO.HMCFM 15:38
PROVIDERS: PCP Nurse Practitioner Family; Visit Provider Nurse Practitioner Family
DX: E66.9 Obesity, unspecified (principal)

== ENCOUNTER → 2025-03-13 15:38 | Outpatient (BNVA) | payer OTHER, SELFPAY | PROVIDERS: PCP Nurse Practitioner Family; Visit Provider Nurse Practitioner Family ==

== ENCOUNTER 2025-04-20 15:28 | Outpatient (REF) | payer OTHER, SELFPAY | END 2025-04-20 15:29 | disposition home or self-care (01) | LOC: HO.MAMMO 15:28 | PROVIDERS: PCP Nurse Practitioner Family; Visit Provider Nurse Practitioner Family | DX: Z12.31 Encounter for screening mammogram for malignant neoplasm of breast (principal) | CPT/HCPCS: 77063; 77067 ==

== ENCOUNTER → 2025-04-20 15:30 | Outpatient (BNV) | payer OTHER, SELFPAY | PROVIDERS: PCP Nurse Practitioner Family; Visit Provider Internal Medicine | DX: Z12.31 Encounter for screening mammogram for malignant neoplasm of breast (principal) | CPT/HCPCS: 77063; 77067 ==

== ENCOUNTER 2025-06-01 14:53 | Outpatient (AMB) | payer OTHER, SELFPAY ==
--- NOTE | 2025-06-01 14:54 | A.OFFPC_ITS ---
Vital Signs 06/01/25 14:59 Height 5 ft 1 in Weight 208 lb BMI 39.3 BP 98/66 Blood Pressure Location Lt brachial Position Sitting Respiration 12 Pulse 99 Pulse Source Pulse Oximeter Temp 97.2 F Temp Source Oral Pulse Oximetry (%) 99 Oxygen Delivery Method Room Air Intake Visit Reasons: Physical Intake Note: CPE. Patient c/o headaches and meds don't help. Agriscience Technology Instructor Required: No Allergies No Known Allergies (No Known Allergies*) Allergy (Verified 06/01/25 15:03) Medication List - Last Reconciled 06/01/25 by Leann Cortes, MEDICAL DELIVERY TECHNICIAN- albuterol sulfate 90 mcg/actuation 2 puffs inhalation Q4-6H PRN 30 days cholecalciferol (vitamin D3) 125 mcg PO DAILY minoxidil 1.25 mg PO DAILY pantoprazole 40 mg PO DAILY Tobacco use date assessed: 06/01/25 Dental Screening Dental Screen Date: 06/01/25 Did you have a dental visit in the last 12 months?: Yes Did you have a dental problem in the last 6 months where you did not have access to dental care?: No Was dental information given to patient?: Patient has dentist HPI HPI Comments History of Present Illness Details Joy 44-year-old female with mild intermitten t asthma, GERD, bilat carpal tunnel, pancreatic calcification, obesity, ANEESH, MDD, Vit D def Status post Fhx aneurysm Health Maintenance: ?Mammo 04/2025 ?PAP 2023 [facility] ?Tdap 2023 Specialists: GI first appt in Jun 2024 FERMENTATION SCIENTIST Counseling Wt Mgmt, initial appt upcoming Optho wears glasses. UTD on eye exam History of Present Illness - The patient is an 84-year-old female p resenting for a complete physical exam. - Vitamin D deficiency, managed with sup plements. - GERD controlled with pantoprazole. - Under treatment for alopecia with kevon xidil. - Asthma managed with albuterol. - Obesity noted, BMI 39.3. - Anxiety and depression; not under curr ent medication. mood r/t wt. Will be seeing bariatrics who has [facility] support. hold off on new referral fo rnow - Family history of brain aneurysms; wee kly headaches with posterior eye focus. Uses NSAIDs. - paresthesias affecting bilateral hands , reports evaluation in the past and diagnosed with cubital tunnel syndrome. Wearing braces at bedtime - Chronic fatigue after stopping cannabi s use; reports ongoing tiredness; excessive daytime fatigue, falls asleep while driving, hypersomnolence. Interested in his sleep study - Pain in the lower extremities during p rolonged walking. Social History - Ceased cannabis use in December due to pe rsistent tiredness. - Reports low energy levels despite life style changes. - Active in weight management plans with an upcoming consultation. - Discomfort due to obesity impacting so cial interactions. - Attempts lifestyle modifications with diet changes to manage weight. Health Maintenance - Current on mammography, Pap smear, tet anus vaccination. - Plans include nerve conduction studies , head CT screening, and sleep study. - Engaged in weight management and dieta ry adjustments. Review of Systems - General: Reports chronic fatigue, slee p disturbances. - Eyes: Reports headaches with eye pain; denies ocular abnormalities post eye exam. - Respiratory: Denies frequent asthma ex acerbations, reports occasional dyspnea with exertion. - Musculoskeletal: Reports elbow pain, c half-way pain with exertion. - Neurological: Reports possible narcole psy symptoms, transient daytime sleepiness. - Psychiatric: Reports anxiety and depre ssion symptoms; not on medication. Physical Exam General: Well developed, well nourished, in no acute distress. Appears stated age. Head: Normocephalic, atraumatic. Eyes: Pupils are equal, round and reactive to light and accommodation. Conjunctivae are clear. Vision grossly normal. Ears: TMs clear AU, EACS WNL Nose: Patent, without discharge. Mouth: There are no ulcers or lesions noted. No inflammation, no post nasal drip, no plaques nor exudates. Neck: Supple, no adenopathy or thyromegaly. Breast: Edu on SBE Lungs: Clear to auscultation bilaterally. No rales, rhonchi or wheeze noted. Good air flow in all jorge. Heart: Regular rate and rhythm. No murmurs, click, rubs or gallops are noted. Abdomen: Bowel sounds present in all quadrants. The abdomen is soft, nontender, with no masses or organomegaly noted. No hernias are noted. : Deferred. Reviewed recommendations for routine FERMENTATION SCIENTIST Musculoskeletal: Joints are nontender, without swelling, redness, or effusions. Range of motion is observed to be normal. Pulses: Peripheral pulses are equal and palpable bilaterally. Extremities: No clubbing, cyanosis nor edema is noted. Neurologic: Gait and station normal. Cranial Nerves 2-12 intact. Motor strength grossly symmetrical and intact. No sensory loss. Balance normal. Skin: No rashes, ulcers, or lesions noted. Turgor is good. Skin color is good. Hair and nails are without abnormalities. Psych: Normal eye contact, affect and mood appropriate, and normal interactions. Patient is alert and appropriate to context. Results pending Discussion Notes I discussed with the patient the plan to coordinate further diagnostic testing, including nerve conduction studies for evaluation of her hand and arm symptoms. A CT scan of the head was recommended due to the family history of aneurysms. I highlighted the importance of undergoing a sleep study to explore potential sleep apnea and its relation to her drowsiness and fatigue. The management of her current medical issues includes her ongoing use of vitamin D supplements and pantoprazole for GERD. Lifestyle modifications for weight management are underway, and an appointment with weight management services was acknowledged. I also discussed the potential need for concomitant psychological support through psychotherapy related to her obesity and associated mental health concerns. We agreed to follow up on the diagnostic outcomes and reassess her management plan as needed. Patient was given time to ask questions. All questions were answered to their satisfaction. Assessment and Plan 1. Vitamin D deficiency - Continue supplementing. - Monitor levels. 2. GERD - Continue pantoprazole. - Assess effectiveness. 3. Androgenic alopecia - Continue minoxidil. 4. Asthma - Use albuterol as needed. - Monitor symptoms. 5. Obesity - Dietary changes ongoing. - Weight management consultation sched ed. 6. Anxiety and depression - Consider psychotherapy via [facility], if this is not helpful please let me know and I can place a another referral to an outside source 7. Family history of aneurysms - Head CT scan scheduled. 8. Paresthesia bilat hands - Nerve study planned. - Modify activities. 9. Possible sleep apnea - Home sleep study scheduled. 10. Fatigue - Screen for anemia and thyroid issues. - Evaluate sleep study results. 11. Bilateral leg pain No alarming symptoms presented. Advised patient to perform gentle stretching exercises. If this continues to be an issue notify me and we can discuss other alternatives Patient Instructions - Schedule and attend all recommended di agnostic tests: nerve conduction study, sleep study, and head CT scan. - Continue vitamin D supplementation and pantoprazole as prescribed. - Use albuterol for any asthma symptoms. - Follow dietary advice and scheduled we ight management consultation. - Consider potential mental health suppo rt options. - return to the office in 1 year for com plete physical exam. My office will arrange for follow up on your test results as the become available. Consent Patient was informed and verbally consented to the use of an ambient scribe for clinic note documentation during this visit. An additional 30 minutes was spent addressing the problem(s) noted at todays visit. This includes time spent before the visit reviewing the chart, time spent during the visit, and time spent after the visit on documentation reviewing laboratory results, diagnostic imaging, medications, performing a medically necessary evaluation, counseling on diagnoses, care coordination, ordering appropriate tests, ordering appropriate medications, review of tests performed by other providers, reporting test results with the patient, communication with other healthcare providers. 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 1. Little interest or pleasure in doing things: several days 2. Feeling down, depressed, or hopeless: several days 3. Trouble falling or staying asleep, or sleeping too much: several days 4. Feeling tired or having little energy: several days 5. Poor appetite or overeating: several days 6. Feeling bad about yourself - or that you are a failure or have let yourself or your family down: several days 7. Trouble concentrating on things, such as reading the newspaper or watching television: several days 8. Moving or speaking so slowly that other people could have noticed. Or the opp osite - being so fidgety or restless that you have been moving around a lot more than usual: not at all 9. Thoughts that you would be better off or of hurting yourself in some way: not at all Total score: 7 Depression Screening Interpretation: Positive Depression Screening Follow-up: Existing condition and In treatment Depression Screening Done: Yes 04713 - PHQ-9 Billing: Yes Source: Developed by Drs. Raman Bates, Homa Noguera, Jakob Denton and colleagues, with an educational amberly from [employer]. Thrive Questionnaire Date Thrive assessed: 06/01/25 I am a: Patient What is your living situation today?: I have a steady place to live Within the past 12 months, did the food you bought not last and you didn't have the money to get more?: Never true Within the past 12 months, did you worry whether your food would run out before you got money to buy more?: Never true Do you have trouble paying for medicines?: No Do you have trouble getting transportation to medical appointments?: No Do you have trouble paying your heating and electricity bill?: No Do you have trouble taking care of your child, family member or friend?: No Do you have trouble with day-to-day activities such as bathing, preparing meals, shopping, managing finances, etc.?: No Are you currently unemployed and looking for a job?: No Are you interested in more education?: Yes Please select the resources that you would like help with: None Currently or been in a relationship where the following occur: No concerns reported THRIVE Score: 0 AUDIT C Alcohol Use Questionnaire (AUDIT-C) 1. How often do you have a drink containing alcohol?: Monthly or less 2. How many drinks containing alcohol do you have on a typical day when you are drinking?: 1 or 2 3. How often do you have six or more drinks on one occasion?: Never Total Score: 1 Score Reviewed/Action Taken: Yes ANEESH-7 AMB Questionnaire ANEESH-7 Date ANEESH - 7 assessed: 06/01/25 Feeling nervous, anxious, or on edge: 1 = Several days Not being able to stop or control worryin = Several days Worrying too much about different things: 1 = Several days Trouble relaxin = Several days Being so restless that it is hard to sit still: 1 = Several days Becoming easily annoyed or irritable: 1 = Several days Feeling afraid as if something awful might happen: 1 = Several days Total ANEESH-7 score (0-4 normal; 5-9 mild; 10-14 moderate; 15-21 severe): 7 Source: Developed by Drs. Raman Bates, Homa Noguera, Jakob Denton and colleagues, with an educational amberly from [employer]. ANEESH-7 Assessment Billing ANEESH-7 Assessment Tool: ANEESH-7 Assessment 00835 ACT Questionnaire In the past 4 weeks, how much of the time did your asthma keep you from getting as much done at work, school or at home?: None of the time During the past 4 weeks, how often have you had shortness of breath?: Not at all During the past 4 weeks, how often did your asthma symptoms wake you up at night or earlier than usual in the morning?: Not at all During the past 4 weeks, how often have you had to use your rescue inhaler or nebulizer medication?: Not at all How would you rate your asthma control during the past 4 weeks?: Completely controlled ACT Interpretation: Negative Score: 25 Physical exam (Primary Care) Vital Signs: Last Vital Signs Temp 97.2 F 06/01/25 14:59 Pulse 99 06/01/25 14:59 Resp 12 06/01/25 14:59 BP 98/66 06/01/25 14:59 Pulse Ox 99 06/01/25 14:59 Oxygen Delivery Method Room Air 06/01/25 14:59 BMI result Body Mass Index 39.3 BMI Assessment/Plan discussion: High BMI High, discussed plan: lifestyle Tobacco/Smoking Status: Tobacco use Status Tobacco use date assessed 06/01/25 06/01/25 15:00 Patient Tobacco Use Status Former Tobacco user 06/01/25 15:00 e-Cigarette/Vaping Use Never Used 06/01/25 15:00 PHQ-9: PHQ-9 Score PHQ-9: Total score 7 06/01/25 15:00 Depression Screening Interpretation: Positive Depression Screening Follow-up: Existing condition and In treatment Thrive Assessment: Date of Thrive Assessment Date Thrive assessed 06/01/25 06/01/25 15:00 Currently or been in a relationship where the following occur: No concerns reported Coding Level of Care Code Est Pt Level 4 (20967) Est Pt Prev Care 18-39y(67723) Diagnoses Encounter for general adult medical examination without abnormal findings Z00.00 Mild episode of recurrent major depressive disorder F33.0 Major depression episode severity: mild ANEESH (generalized anxiety disorder) F41.1 Obesity (BMI 30-39.9) E66.9 Chronic GERD K21.9 Mild intermittent asthma in adult without complication J45.20 Family history of brain aneurysm Z82.49 Paresthesia of hand, bilateral R20.2 Vitamin D deficiency E55.9 Daytime somnolence R40.0 Generalized headaches R51.9 Leg pain, bilateral M79.604; M79.605 History of Papanicolaou smear of cervix Z92.89 History of mammogram Z92.89 Additional Codes ANEESH-7 Assessment Billing - ANEESH-7 Assessment Tool: ANEESH-7 Assessment 87324 ([id number]) PHQ-9 - 50480 - PHQ-9 Billing: Yes ([id number]) Asthma Control Questionnaire - ACT Interpretation: Negative ([id number]) Assessment & Plan Assessment & Plan (1) Encounter for general adult medical examination without abnormal findings: Onset Date: ~06/01/25 Comment: Code(s): Z00.00 - Encounter for general adult medical examination without abnormal findings Category: Medical (2) MDD (major depressive disorder), recurrent episode: Comment: referred to counseling declined meds at this time Code(s): F33.9 - Major depressive disorder, recurrent, unspecified Category: Medical Qualifiers: Major depression episode severity: mild Qualified Code(s): F33.0 - Major depressive disorder, recurrent, mild (3) ANEESH (generalized anxiety disorder): Comment: see MDD Code(s): F41.1 - Generalized anxiety disorder Category: Medical (4) Obesity (BMI 30-39.9): Code(s): E66.9 - Obesity, unspecified Category: Medical (5) Chronic GERD: Code(s): K21.9 - Gastro-esophageal reflux disease without esophagitis Category: Medical (6) Mild intermittent asthma in adult without complication: Comment: only flares when ill refilled NED Code(s): J45.20 - Mild intermittent asthma, uncomplicated Category: Medical (7) Family history of brain aneurysm: Code(s): Z82.49 - Family history of ischemic heart disease and other diseases of the circulatory system Category: Medical (8) Paresthesia of hand, bilateral: Code(s): R20.2 - Paresthesia of skin Category: Medical (9) Vitamin D deficiency: Code(s): E55.9 - Vitamin D deficiency, unspecified Category: Medical (10) Daytime somnolence: Code(s): R40.0 - Somnolence Category: Medical (11) Generalized headaches: Code(s): R51.9 - Headache, unspecified Category: Medical (12) Leg pain, bilateral: Code(s): M79.604 - Pain in right leg; M79.605 - Pain in left leg Category: Medical (13) History of Papanicolaou smear of cervix: Onset Date: ~2023 Code(s): Z92.89 - Personal history of other medical treatment Category: Medical (14) History of mammogram: Onset Date: ~04/2025 Code(s): Z92.89 - Personal history of other medical treatment Category: Medical Plan . Orders: Orders Complete Blood Count no Diff Today E55.9 - Vitamin D deficiency, unspecified Comprehensive Met. Panel Today E55.9 - Vitamin D deficiency, unspecified Lipid Panel Today E55.9 - Vitamin D deficiency, unspecified TSH reflex Free T4 Today E55.9 - Vitamin D deficiency, unspecified Vitamin B12 and Folate Today E55.9 - Vitamin D deficiency, unspecified NE nerve conduction velocity Today R20.2 - Paresthesia of skin Hemoglobin A1c Today E55.9 - Vitamin D deficiency, unspecified Microalbumin, Random (w Creat) Today E55.9 - Vitamin D deficiency, unspecified Vitamin D 25-OH Total Today E55.9 - Vitamin D deficiency, unspecified RT home sleep study Today R40.0 - Somnolence CT angio head Today R51.9 - Headache, unspecified, Z82.49 - Family history of ischemic heart disease and other diseases of the circulatory system Patient Instructions: Patient Instructions - Schedule and attend all recommended diagnostic tests: nerve conduction study, sleep study, and head CT scan. - Continue vitamin D supplementation and pantoprazole as prescribed. - Use albuterol for any asthma symptoms. - Follow dietary advice and scheduled weight management consultation. - Consider potential mental health support options. - return to the office in 1 year for complete physical exam. My office will arrange for follow up on your test results as the become available. Health screenings for women You should visit your health care provider from time to time, even if you are healthy. The purpose of these visits is to: Screen for medical issues Assess your risk for future medical problems Encourage a healthy lifestyle Update vaccinations and other preventive care services Help you get to know your provider in case of an illness Information Even if you feel fine, you should still see your provider for regular checkups. These visits can help you avoid problems in the future. For example, the only way to find out if you have high blood pressure is to have it checked regularly. High blood sugar and high cholesterol levels also may not have any symptoms in the early stages. A simple blood test can check for these conditions. There are specific times when you should see your provider or receive specific health screenings. The [place] Preventive Services Task Force publishes a list of recommended screenings. Below are screening guidelines for women ages 18 to 39. BLOOD PRESSURE SCREENING Your blood pressure should be checked at least once every 3 to 5 years if: Your blood pressure is in the normal range (top number less than 120 mm Hg and bottom number less than 80 mm Hg) You don't have risk factors for high blood pressure Ask your provider if you need your blood pressure checked more often if: The top number is 120 to 129 mm Hg or the bottom number is 70 to 79 mm Hg You have diabetes, heart disease, kidney problems, are overweight, or have certain other health conditions You have a first-degree relative with high blood pressure You are Black You had high blood pressure during a If the top number is 130 mm Hg or greater or the bottom number is 80 mm Hg or greater, this is considered stage 1 hypertension. Schedule an appointment with your provider to learn how you can reduce your blood pressure. Watch for blood pressure screenings in your area. Ask your provider if you can stop in to have your blood pressure checked. BREAST CANCER SCREENING Experts do not agree about the benefits of breast self-exams in finding breast cancer or saving lives. Talk to your provider about what is best for you. A screening mammogram is not recommended for most women under age 40. Your provider may discuss and recommend mammograms, MRI scans, or ultrasounds if you have an increased risk for breast cancer, such as: A mother or sister who had breast cancer at a young age (most often starting screening earlier than the age the close relative was diagnosed) You carry a high-risk genetic marker CERVICAL CANCER SCREENING Cervical cancer screening should start at age 21 years unless your provider advises otherwise. After the first test: Women ages 21 through 29 should have a Pap test every 3 years. Exoprts do not agree on whether HPV testing is recommended for this age group. Women ages 30 through 65 should be screened with either a Pap test every 3 years or the HPV test every 5 years or both tests every 5 years (called cotesting ). Women who have been treated for precancer (cervical dysplasia) should continue t o have Pap tests for 20 years after treatment or until age 65, whichever is longer. If you have had your uterus and cervix removed (total hysterectomy), and you have not been diagnosed with cervical cancer or precancer (high grade cervical neoplasia), you do not need cervical cancer screening. CHOLESTEROL SCREENING Cholesterol screening should begin at: Age 45 for women with no known risk factors for coronary heart disease Age 20 for women with known risk factors for coronary heart disease Repeat cholesterol screening should take place: Every 5 years for women with normal cholesterol levels More often if changes occur in lifestyle (including weight gain and diet) More often if you have diabetes, heart disease, kidney problems, or certain other conditions DIABETES SCREENING You should be screened for diabetes starting at age 35 and then repeated every 3 years if you have no risk factors for diabetes. Screening may need to start earlier and be repeated more often if you have other risk factors for diabetes, such as: You have a first degree relative with diabetes. You are overweight or have obesity. You have high blood pressure, prediabetes, or a history of heart disease. Screening for diabetes should be done if you are planning to become and you are overweight and have other risk factors such as high blood pressure. DENTAL EXAM Go to the dentist once or twice every year for an exam and cleaning. Your dentist will evaluate if you need more frequent visits. EYE EXAM Have an eye exam every 5 to 10 years before age 40. If you have vision problems, have an eye exam every 2 years or more often if recommended by your provider. You should have an eye exam that includes an examination of your retina (back of your eye) at least every year if you have diabetes. IMMUNIZATIONS Commonly needed vaccines include: Flu shot: get one every year. COVID-19 vaccine: ask your provider what is best for you. Tetanus-diphtheria and acellular pertussis (Tdap) vaccine: have one at or after age 19 as one of your tetanus-diphtheria vaccines if you did not receive it as an adolescent. Tetanus-diphtheria: have a booster (or Tdap) every 10 years. Varicella vaccine: receive 2 doses if you never had chickenpox or the varicella vaccine. Hepatitis B vaccine: receive 2, 3, or 4 doses, depending on your exact circumstances. Measles, mumps, and rubella (MMR) vaccine: receive 1 to 2 doses if you are not already immune to MMR. Your provider can tell you if you are immune. Ask your provider about the human papillomavirus (HPV) vaccine if: You have not received the HPV vaccine in the past You have not completed the full vaccine series (you should catch up on this shot) Ask your provider if you should receive other immunizations if you have certain health problems that increase your risk for some diseases such as pneumonia. INFECTIOUS DISEASE SCREENING Women who are sexually active should be screened for chlamydia and gonorrhea up until age 25. Women 25 years and older should be screened for chlamydia and gonorrhea if at high risk. Screening for hepatitis C: All adults ages 18 to 79 should get a one-time test for hepatitis C. people should be screened at every . Screening for human immunodeficiency virus (HIV): All people ages 15 to 65 should get a one-time test for HIV. Depending on your lifestyle and medical history, you may also need to be screened for infections such as syphilis and HIV, as well as other infections. PHYSICAL EXAM All adults should visit their provider from time to time, even if they are healthy. The purpose of these visits is to: Screen for disease Assess your risk of future medical problems Encourage a healthy lifestyle Update your vaccinations and other preventive care services Maintain a relationship with a provider in case of an illness Your height, weight, and BMI should be checked at every exam. During your exam, your provider may ask you about: Depression and anxiety Diet and exercise Alcohol and tobacco use Safety issues, such as using seat belts, smoke detectors, and intimate partner violence Your medicines and risk for interactions SKIN SELF-EXAM Your provider may check your skin for signs of skin cancer, especially if you're at high risk, such as if you: Have had skin cancer before Have close relatives with skin cancer Have a weakened immune system OTHER SCREENING Talk with your provider about colon cancer screening if you have a strong family history of colon cancer or polyps, or if you have had inflammatory bowel disease or polyps yourself. Routine bone density screening of women under 40 is not recommended.
--- OUTSIDE RECORDS SUMMARY | 2025-06-01 14:55 | XMS_ITS | Clinical Summary ---
Author Organization [facility] Address [address] [place] [id number] Phone Care Team Providers Care Beef Grader Name Role Phone Valentine Radha Doyle PIN FEATHER MACHINE OPERATOR Unavailable [phone] Unknown, Unknown Primary Care Provider Unavai lable Allergies No known active allergies Medications albuterol (PROAIR HFA) 90 mcg/actuation inhalerIndicatio ns:Mild intermittent asthma without complication Inhale 2 puffs into the lungs every 4 (four) hours as needed for wheezing. 2 Inhaler 1 0 Active pantoprazole (PROTONIX) 40 MG tabletIndication s:Gastroesophage al reflux disease, unspecified whether esophagitis present Take 1 tablet (40 mg total) by mouth daily. 30 tablet 1 0 Active Additional Information Patient not taking.Reported on 10/17/2020 dicyclomine (BENTYL) 10 MG capsule 0 Active famotidine (PEPCID) 40 MG tablet 0 Active Active Problems Problem Noted Date Diagnosed Date Gastroesophageal reflux disease 09/10/2020 Assessment & Plan (10/20/2020 8:59 PM EST): Will resume PPI when cleared by GI Assessment & Plan (09/10/2020 2:48 PM EST): Discussed trial of pantoprazole for severe GERD. Will refer to Dr. Doran for evaluation, as well. Bilateral carpal tunnel syndrome 09/10/2020 Assessment & Plan (10/20/2020 8:59 PM EST): Continue OT as prescribed Assessment & Plan (09/10/2020 2:49 PM EST): Referring for orthopedic assessment. Hair thinning 09/10/2020 Assessment & Plan (10/20/2020 9:00 PM EST): Recommend trial of Biotin/Hair, Skin & Nails supplement; to take with meals as prior supplementation caused nausea. Assessment & Plan (09/10/2020 2:49 PM EST): Check TSH. Consider hormonal workup as indicated. Asthma Assessment & Plan (10/20/2020 8:59 PM EST): Well-managed Assessment & Plan (09/10/2020 2:48 PM EST): Episodic, will refill albuterol to be used prn. Immunizations Immunization Administration Dates Next Due Td (adult) 5 Lf Tetanus Toxoid, PF, Adsorbed 10/2019 Family History Medical History Relation Comments Diabetes Maternal Grandfather ANGIE disease Mother Arthritis Paternal Grandfather Cancer Paternal Grandmother GI cancer Asthma Sister Diabetes Sister T2DM Thyroid disease Neg Hx Relation Status Comments Father Alive Maternal Grandfather Maternal Grandmother Alive Mother Alive Paternal Grandfather Paternal Grandmother Sister Alive Son Alive Social History Tobacco Use Types Packs/Day Years Used Date Smoking Tobacco: Never Smokeless Tobacco: Never Alcohol Use Standard Drinks/Week Comments Not Currently 0 (1 standard drink = 0.6 oz pur e alcohol) 5 drinks/year Education Answer Date Recorded Are you interested in more education? Not on agustin e 02/05/2023 Are you concerned about learning? Not on file 02/05/2023 No 02/05/2023 No 02/05/2023 Digital Access Answer Date Recorded No 03/05/2023 No 03/05/2023 Reliable internet access at home? Not on file 03/05/2023 Device with a working camera? Not on file Comments Unknown Sex and Gender Information Value Date Recorded Sex Assigned at Not on file Legal Sex Female 9:20 PM EDT Gender Identity Not on file Sexual Orientation Not on file Last Filed Vital Signs Vital Sign Reading Time Taken Comments Blood Pressure 100/58 10/17/2020 12:01 PM EST Pulse 77 10/17/2020 12:01 PM EST Temperature 36.4 C (97.5 F) 10/17/2020 12:01 PM EST Respiratory Rate 16 10/17/2020 12:0 1 PM EST Oxygen Saturation 99% 10/17/2020 12: 01 PM EST Inhaled Oxygen Concentration - - Weight 86.1 kg (189 lb 14.4 oz) 021 12:01 PM EST Height 152.5 cm (5' 0.05 ) 10/17/2020 1 2:01 PM EST Body Mass Index 37.03 10/17/2020 12:01 PM EST Plan of Treatment Health Maintenance Due Date Last Done Comments HIV ONE-TIME SCREENING (18-6 5 YEARS) 1999 PNEUMOCOCCAL VACCINES (0-49 years) (1 of 2 - PCV) 2000 MAMMOGRAM 2021 DEPRESSION SCREENING 10/17/2021 10/17/2020 PAP SMEAR 10/17/2023 10/17/2020 COVID-19 VACCINE (2 - 2023-2 5 season) 2024 06/22/2021 Adult Td,Tdap Booster 09/10/2030 09/10/2020 HEPATITIS C SCREENING Completed 09/25/2020 SMOKING STATUS SCREENING (On ce After 26 Yrs) Completed 10/17/2020 HEPATITIS A VACCINES Aged Out No long er eligible based on patient's age to complete this topic HIB VACCINES Aged Out No longer eligi ble based on patient's age to complete this topic MENINGOCOCCAL VACCINES (ACWY) Aged Out No longer eligible based on patient's age to complete this topic MENINGOCOCCAL VACCINES (B) Aged Out N o longer eligible based on patient's age to complete this topic Medical Devices Not on file Procedures Procedure Name Priority Date/Time Associated Diagnosis Comments PAP TEST Routine 10/17/2020 12:00 AM EST HEPATITIS C ANTIBODY, QUALITATIVE Routine 09/25/2020 4:50 PM EST Routine screening for STI (sexually transmitted infection) from Last 3 Months or Most Recently Relevant to Health Maintenance Results * Pap Smear (10/17/2020 12:00 AM EST) 10/17/2020 10/18/2020 8:2 3 AM EST Narrative SEE NARRATIVE - 10/22/2020 9:32 AM EST [address] [address] Physician Assistant Surgery: Nancy Fernandez MD UNLOADER Cytology Report FINAL DIAGNOSIS A. PAP SMEAR (SUREPATH) CE: SPECIMEN ADEQUACY: Satisfactory for evaluation; transformation zone present. INTERPRETATION: NEGATIVE FOR INTRAEPITHELIAL LESION OR MALIGNANCY. Coccobacilli consistent with shift in jhon Electronically Signed Out By: BRIDGETT Ayala(ASCP) The Pap test is a screening test primarily for squamous cancers and precursors and has associated false-negative and false-positive results. New technologies such as liquid-based preparations may decrease but will not eliminate all false-negative results. Regular sampling and follow-up of unexplained clinical signs and symptoms are recommended to minimize false negative results. PROCEDURES/ADDENDA HPV Testing (Requested) Ordered Date: 10/18/2020 A. PAP SMEAR (SUREPATH) CE: Human Papilloma Virus Test Negative for high-risk human papillomavirus types 16, 18, 45 and the Other high risk probe set (Includes 31, 33, 35, 39, 51, 52, 56, 58, 59, 66, 68) by [employer] Onclarity HR-HPV analysis. Clinical correlation is advised. This HPV test was performed at [facility], [address] [place] [address]. This test has been FDA approved for SurePath cervical cytology specimens. The accuracy and precision of this test for all other specimen sources has been verified in the Cytopathology Laboratory of the [facility] and has not been cleared or approved by the U.S. Food and Drug Administration. Clinical correlation is advised. CLINICAL HISTORY Date of Last Menstrual Period: 09-10-2020 Other Clinical Conditions: Screening Pap SPECIMEN SOURCE A: PAP SMEAR (SUREPATH) CE Patient Name: JANES FONTANA : 1980 (Age: 40) Sex: F Institution: [facility] Location: [facility] Date of Collection: 10/17/2020 Date of Reported: 10/21/2020 11:49 Results to: Karlene Doyle Amelia SALGADO us Karlene Robersonjayme CONCRETE PIPE PLANT SUPERVISOR CYTOLOGY ORDERABLES Ed ited Result - Final SEE NARRATIVE * Hepatitis C antibody, qualitative (09/25/2020 4:50 PM EST) Blood us Karlene Snyder Amelia CONCRETE PIPE PLANT SUPERVISOR LAB BLOOD ORDERABLES F inal Result EXTERNAL NON-INTERFACED REF LAB from Last 3 Months or Most Recently Relevant to Health Maintenance Insurance [facility] SAFETY NET PARTIAL [facility] SAFETY NET PARTIAL HEALTH SAFETY NET PARTIAL HEALTH SAFETY NET PARTIAL HEALTH SAFETY NET PARTIAL HEALTH SAFETY NET PARTIAL HEALTH SAFETY NET PARTIAL HEALTH SAFETY NET PARTIAL HEALTH SAFETY NET PARTIAL Care Teams Beef Grader Relationship Specialty Start Date End Date Unknown, Unknown, PCP - General 09/09/23 Radha Grijalva NP [email or web address] Historical LMR Provider 07/28/17 Additional Source Comments The information contained in this document represents components of the legal health record. It is not the complete legal health record.[facility]
[2025-06-01 14:59] VITALS: BP 98/66; PULSE 99; RESP 12; TEMP 36.2; O2SAT 99; BMI 39.3
== END 2025-06-01 15:52 | disposition home or self-care (01) ==
LOC: HO.HMCFM 14:53
PROVIDERS: PCP Nurse Practitioner Family; Visit Provider Nurse Practitioner Family
DX: Z00.00 Encounter for general adult medical examination without abnormal findings (principal); K21.9 Gastro-esophageal reflux disease without esophagitis; F33.0 Major depressive disorder, recurrent, mild; E66.9 Obesity, unspecified; Z68.39 Body mass index [BMI] 39.0-39.9, adult; F41.1 Generalized anxiety disorder; J45.20 Mild intermittent asthma, uncomplicated; Z82.49 Family history of ischemic heart disease and other diseases of the circulatory system; R20.2 Paresthesia of skin; E55.9 Vitamin D deficiency, unspecified; R40.0 Somnolence; R51.9 Headache, unspecified

== ENCOUNTER 2025-06-01 14:53 | Outpatient (REF) | payer OTHER, SELFPAY ==
[2025-06-01 18:02] LABS: Hematocrit 35.9 % (37.0-47.0); Hemoglobin 12.3 g/dl (12.0-16.0); Mean Corpuscular HGB Conc 34.3 g/dl (31.0-35.0); Mean Corpuscular Hemoglobin 29.7 pg (27.0-33.0); Mean Corpuscular Volume 86.7 fL (80.0-98.0); NRBC Abs Auto 0.000 X10*3/uL (0.0-0.012); NRBC Pct Auto 0.0 /100WBC (0.0-0.2); Platelet Count 344 X10*3/uL (160-400); Red Blood Count 4.14 X10*6/uL (4.20-5.50); White Blood Count 8.9 X10*3/uL (4.8-10.8)
[2025-06-01 18:12] LABS: Total Hemoglobin (HGBA1C) 3275.6514 umol/L
[2025-06-01 18:17] LABS: Microalbum/Creatinine Ratio Ur 7.7 ug/mg cr (<30)
[2025-06-01 18:23] LABS: Alanine Aminotransferase 28 U/L (0-31); Albumin Level 4.2 g/dL (3.5-5.0); Alkaline Phosphatase 68 U/L (39-117); Anion Gap 16 (12-20); Aspartate Amino Transferase 26 U/L (5-31); Blood Urea Nitrogen 10 mg/dL (9-16); Calcium 9.8 mg/dL (8.4-10.2); Carbon Dioxide 24 mmol/L (22-29); Chloride 104 mmol/L (96-108); Cholesterol 209 mg/dL (<200); Estimated Glomerular Filt Rate > 60; HDL Cholesterol 56 mg/dL (>40); Potassium 4.1 mmol/L (3.3-5.1); Sodium 140 mmol/L (135-145); Total Protein 8.1 g/dL (6.5-8.0); Triglycerides 152 mg/dL (<150)
[2025-06-01 18:52] LABS: Folate 4.7 ng/mL (> or = 4.0); Vitamin B12 548 pg/mL (200-900)
== END 2025-06-01 14:54 | disposition home or self-care (01) ==
LOC: HO.WFDLDS 14:53
PROVIDERS: PCP Nurse Practitioner Family; Visit Provider Nurse Practitioner Family
DX: Z00.00 Encounter for general adult medical examination without abnormal findings (principal); F33.0 Major depressive disorder, recurrent, mild; F41.1 Generalized anxiety disorder; E55.9 Vitamin D deficiency, unspecified; E66.9 Obesity, unspecified; K21.9 Gastro-esophageal reflux disease without esophagitis; J45.20 Mild intermittent asthma, uncomplicated; R20.2 Paresthesia of skin; R40.0 Somnolence; R51.9 Headache, unspecified; M79.604 Pain in right leg; M79.605 Pain in left leg; Z82.49 Family history of ischemic heart disease and other diseases of the circulatory system; Z92.89 Personal history of other medical treatment; Z68.39 Body mass index [BMI] 39.0-39.9, adult
CPT/HCPCS: 36415; 80053; 80061; 82043; 82306; 82570; 82607; 82746; 83036; 84443; 85027; 96127; 96160

== ENCOUNTER 2025-06-29 08:19 | Outpatient (AMB) | payer OTHER, SELFPAY ==
--- OUTSIDE RECORDS SUMMARY | 2025-06-29 08:48 | XMS_ITS | Clinical Summary ---
Author Organization [facility] Address [address] [place] [id number] Phone Care Team Providers Care Child Attendant Name Role Phone Valentine Radha Doyle POWER MARKETER Unavailable [phone] Unknown, Unknown Primary Care Provider Unavai [...] SCREENING 10/17/2021 10/17/2020 PAP SMEAR 10/17/2023 10/17/2020 INFLUENZA VACCINE (#1) 2025 COVID-19 VACCINE (2 - 2024-2 6 season) 2025 06/22/2021 Adult Td,Tdap Booster 09/10/2030 09/10/2020 HEPATITIS [...] SEE NARRATIVE - 10/22/2020 9:32 AM EST [address] [address] Clinical Sales Consultant: Nancy Fernandez MD WINDING LATHE OPERATOR Cytology Report FINAL DIAGNOSIS A. PAP SMEAR [...] 52, 56, 58, 59, 66, 68) by [email or web address] Onclarity HR-HPV analysis. Clinical correlation is advised. This HPV test was performed at [facility], [address] [place] [address]. This test has been FDA approved for SurePath cervical cytology specimens. The accuracy and precision of this test for all other specimen sources has been verified in the Cytopathology Laboratory of the [facility] and has not been cleared or approved by the U.S. Food and Drug Administration. Clinical correlation is advised. CLINICAL HISTORY Date of Last Menstrual Period: 09-10-2020 Other Clinical Conditions: Screening Pap SPECIMEN SOURCE A: PAP SMEAR (SUREPATH) CE Patient Name: JANES FONTANA : 1980 (Age: 40) Sex: F Institution: [facility] Location: [facility] Date of Collection: 10/17/2020 Date of Reported: 10/21/2020 11:49 Results to: Karlene Doyle Amelia SALGADO us Karlene Cisneros HIGH SCHOOL GUIDANCE COUNSELOR CYTOLOGY ORDERABLES Ed ited Result - Final Performing Organization Address City/[facility]/ZIP Co de Phone Number SEE NARRATIVE * Hepatitis C antibody, qualitative (09/25/2020 4:50 PM EST) Blood us Karlene Dialmilvia HIGH SCHOOL GUIDANCE COUNSELOR LAB BLOOD ORDERABLES F inal Result Performing Organization Address City/[facility] Co de Phone Number EXTERNAL NON-INTERFACED REF LAB from Last 3 Months or Most Recently Relevant to Health Maintenance Insurance [employer] SAFETY NET PARTIAL [employer] NET PARTIAL HEALTH SAFETY NET PARTIAL HEALTH SAFETY NET PARTIAL HEALTH SAFETY NET PARTIAL HEALTH SAFETY NET PARTIAL HEALTH SAFETY NET PARTIAL HEALTH SAFETY NET PARTIAL HEALTH SAFETY NET PARTIAL Care Teams Child Attendant Relationship Specialty Start Date End Date Unknown, Unknown, PCP - General 09/09/23 Radha Grijalva NP [email or web address] Historical LMR Provider 07/28/17 Additional Source Comments The information contained in this document represents components of the legal health record. It is not the complete legal health record.[facility]
--- NOTE | 2025-06-29 12:32 | A.OFFVIS_ITS ---
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* Allergies No Known Allergies (No Known Allergies*) Allergy (Verified 06/29/25 12:32) Medication List - Last Reconciled 06/29/25 by Atif Wei MD albuterol sulfate 90 mcg/actuation 2 puffs inhalation Q4-6H PRN 30 days cholecalciferol (vitamin D3) 125 mcg PO DAILY minoxidil 1.25 mg PO DAILY pantoprazole 40 mg PO DAILY HPI HPI 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 *BMI 39.1*: Details: Start time: 12,25pm, End time: 1.05pm ?I spent 35 minutes speaking with the patient on the phone plus an additional 5 minutes reviewing and updating records for a total of 40 minutes HPI Comments Details: Previous weight loss efforts: WW, exercise Wakes up: 6am on weekends 8-9am, sleeps: midnight Breakfast: skips Lunch: 1-2pm (sandwich, fast food) Dinner: 6-7pm (rice, beans, chops, steak with broccoli) Snacks: 10am (fruit occasionally), 3-4pm (chips occasionally) Exercise: has a home Peloton bike Beverages: Coffee: occasionally, Tea: none, Soda: Coke or Pepsi, or Sprite (daily), Juice: 2-3/wk (orange or apple juice), ETOH: none PFSH Medical History (Updated 06/04/25 @ 07:12 by Leann Cortes [facility]) Dyspareunia, female Pelvic pain Change in stool Heartburn Surgical History History of Family History Father Alive and well Mother Alive and well Paternal Grandmother Colon cancer Social History Housing: House Alcohol intake: never Patient Tobacco Use Status: Former Tobacco user e-Cigarette/Vaping Use: Never Used Substance Use Type: Marijuana service: No Current occupational status: employed 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 Cognitive needs: No Hearing needs: No Vision needs: Yes Telehealth Telehealth Telehealth Platform: Telephone Location of provider rendering services: practice address Location of patient: address on file Patient Identification confirmed using: Name, : Yes Telehealth method: voice only Patient verbally consented to treatment: Yes Patient verbally consented to billing insurance company: Yes Patient informed of any privacy concerns related to visit: Yes Minutes spent on Phone/Video with Pt.: 40 Assessment & Plan Assessment & Plan (1) Obesity (BMI 30-39.9): Code(s): E66.9 - Obesity, unspecified Category: Medical Plan: 1. Start Phentermine one per day at 10am. We discussed the potential side- effects of the Phentermine such as irritability, dry mouth, difficulty sleeping, dizziness, numbness in feet and high blood pressure. I asked her to get a blood pressure monitor and measure the blood pressure daily in the morning and evening. She needs to send the blood pressure readings daily and to call the office for blood pressure over 140/80 and she understands that. 2. You will receive a link of our software raul to generate an individualized nutritional and exercise plan specific for you. Please send me a screenshot of the plans you will generate Meal to include lean meat (beef, fish, pork, turkey, chicken), or uzbek yogurt, or egg whites, or beans with a salad with olive oil and fruits (berries, pears, apples, kiwi). Avoid salt, breads, potatoes, rice, pasta, desserts. ?3. If you choose shakes, each shake would be drunk slowly, like coffee in a period of 2 hours. ?4. If you choose bars, cut each bar in 4 pieces and eat each piece in 30min ?to make each bar last 2 hours. ?5. I emphasized the importance of measuring accurately the food portion and measure it when serving the food in plate ?6. The meal portions include a specific number of forks of meat and salad. You always eat the meat portion but you can replace up to half of salad/vegetables portion with rice, potatoes or pasta, or a fruit ?if you like. The less you do it the better weight loss will be. ?7. One full-size fork is what it can be scooped on the fork without falling aside and not what can be bit with the fork. Use regular forks like those you find in a typical restaurant. ?8.? Please buy the body composition scale we discussed and send me weight measurements as soon as possible and then once a week. Always include your diet and exercise plan. 9. The best exercise choice would be to use your PelSmartion bike at home that can track calories. You can create and exercise plan with the [facility] raul. ?10.?It is important of avoiding and for at least 18 months postoperatively and has been discussed at the infosession. ?11. Goal is to lose at least 1.5-2lbs per week ?12. Goal to lose at least 10% of your weight, which is about 20lbs. Minimum weight goal: 180lbs 13. Please follow the diet plan exactly without any change. If you don't like something about the plan or you feel hungry you need to communicate with me so I can help you revise the plan. You should not change the plan yourself. Medications: New phentermine must administer 30 minutes before or 1-2 hours after breakfast 37.5 mg PO DAILY 30 caps 0RF E66.9 - Obesity, unspecified
[2025-06-29 12:39] VITALS: BMI 38.0
== END 2025-06-29 13:06 | disposition home or self-care (01) ==
LOC: HO.HBS 08:19
PROVIDERS: PCP Nurse Practitioner Family; Visit Provider Surgery
DX: E66.9 Obesity, unspecified (principal)
CPT/HCPCS: 99203

== ENCOUNTER 2025-07-06 13:15 | Outpatient (REF) | payer OTHER, SELFPAY ==
--- NOTE | ~2025-07-06 | CT_ITS ---
EXAMINATION: CTA BRAIN WITH CONTRAST (STROKE) CLINICAL INFORMATION: Family history of ischemic heart disease and other diseases. Z 82.49 COMPARISON: None available. TECHNIQUE: CTA of the head was performed in the axial plane from the skull base/hard palate to the skull vertex using 75 mL Omnipaque 350 intravenous contrast. Additional reformatted multiplanar images including maximum intensity projection MIP images are generated on the CT workstation. This CT examination was performed using dose optimization techniques as appropriate, variously including the following: *Automated exposure control *Adjustment of mA and/or kV according to patient size (this includes techniques or standardized protocols for targeted exams where dose is matched to indication/reason for exam; i.e. extremities or head) *Use of iterative reconstruction technique. DLP: 1299 mGy centimeter. FINDINGS: . Brain: No acute intracranial hemorrhage, mass effect, midline shift, hydrocephalus or herniation. Yancey-white matter differentiation is normal. Posterior cranial fossa contents demonstrated a 9 mm hypodensity right cerebellum. Normal position of the cerebellar tonsils. Sellar/suprasellar region is normal. No abnormal enhancement within the intra-axial or the extra-axial compartment of the cranium. The bony calvarium is intact. No gross air-fluid levels in the paranasal sinuses. Tympanic cavities and mastoid cells are aerated with poor pneumatization of the left mastoid air cells. Brain CTA: Anterior cerebral circulation: ICAs: Normal patency. No focal stenosis. No abrupt cut off. No vascular irregularity at the ICA terminus. MCA's: Normal patency. No focal stenosis. No abrupt cut off. No vascular abnormality centered in the bifurcation/trifurcation. ACAs: Normal patency. No focal stenosis. No abrupt cut off. Anterior communicating artery is patent without vascular irregularity. Ophthalmic arteries are patent without vascular irregularity at the origin. Posterior communicating arteries are patent with small caliber. No vascular irregularity at the origin. Posterior cerebral circulation: V3/V4 segments: Normal patency. No focal stenosis. No intimal flap. Codominant. Posterior inferior cerebral arteries are patent without vascular irregularity at the origin. Anterior inferior cerebellar arteries are patent without vascular irregularity. Basilar artery is patent without focal stenosis or intimal flap. Superior cerebellar arteries are patent. swimming pool cleaner: Normal patency. No focal stenosis. No abrupt cut off. Ancillary findings: Main cerebral venous sinuses and cerebral veins are patent without intraluminal filling defects. CT/CT angio head IMPRESSION: Normal CT angiogram [place]. No main cerebral venous sinus thrombosis. No enhancing lesion. 9 mm nonenhancing hypodensity, right cerebellum. This critical test result is communicated to: Electronically signed by: Navid Post MD 07/06/2025 02:04 PM EDT
[2025-07-06] MEDS: iohexoL 350 MG/ML 100 ML INFUS..BTL IV (13:53)
--- OUTSIDE RECORDS SUMMARY | 2025-07-06 14:32 | XMS_ITS | Clinical Summary ---
Author Organization [facility] Address [address] [place] [address] Phone Care Team Providers Care Management Professor Name Role Phone Valentine Radha Doyle CLEAN UP WORKER Unavailable [phone] Unknown, Unknown Primary Care Provider Unavai [...] SEE NARRATIVE - 10/22/2020 9:32 AM EST [address] [place] [address] [address] Sash Clamp Operator: Nancy Fernandez MD SOUND EDITOR Cytology Report FINAL DIAGNOSIS A. PAP SMEAR [...] 52, 56, 58, 59, 66, 68) by [employer] Onclarity HR-HPV analysis. Clinical correlation is advised. This HPV test was performed at [facility], [address] [place] [address]. This test has been FDA approved for SurePath cervical cytology specimens. The accuracy and precision of this test for all other specimen sources has been verified in the Cytopathology Laboratory of the [facility] and has not been cleared or approved by the U.S. Food and Drug Administration. Clinical correlation is advised. CLINICAL HISTORY Date of Last Menstrual Period: 09-10-2020 Other Clinical Conditions: Screening Pap SPECIMEN SOURCE A: PAP SMEAR (SUREPATH) CE Patient Name: JANES FONTANA : 1980 (Age: 40) Sex: F Institution: [facility] Location: [facility] Date of Collection: 10/17/2020 Date of Reported: 10/21/2020 11:49 Results to: Karlene Doyle Amelia SALGADO us Karlene Cisneros BRIDGE CARPENTER CYTOLOGY ORDERABLES Ed ited Result - Final Performing Organization Address City/[facility]/ZIP Co de Phone Number SEE NARRATIVE * Hepatitis C antibody, qualitative (09/25/2020 4:50 PM EST) Blood us Karlene Dialmilvia BRIDGE CARPENTER LAB BLOOD ORDERABLES F inal Result Performing Organization Address City/[facility] Co de Phone Number EXTERNAL NON-INTERFACED REF LAB from Last 3 Months or Most Recently Relevant to Health Maintenance Insurance [employer] + SAFETY NET PARTIAL [employer] NET PARTIAL HEALTH SAFETY NET PARTIAL HEALTH SAFETY NET PARTIAL HEALTH SAFETY NET PARTIAL HEALTH SAFETY NET PARTIAL HEALTH SAFETY NET PARTIAL HEALTH SAFETY NET PARTIAL HEALTH SAFETY NET PARTIAL Care Teams Management Professor Relationship Specialty Start Date End Date Unknown, Unknown, PCP - General 09/09/23 Radha Grijalva NP [email or web address] Historical LMR Provider 07/28/17 Additional Source Comments The information contained in this document represents components of the legal health record. It is not the complete legal health record.[facility]
== END 2025-07-06 13:16 | disposition home or self-care (01) ==
LOC: HO.CT 13:15
PROVIDERS: PCP Nurse Practitioner Family; Visit Provider Nurse Practitioner Family
DX: R51.9 Headache, unspecified (principal); Z82.49 Family history of ischemic heart disease and other diseases of the circulatory system
CPT/HCPCS: 70496; Q9967

== ENCOUNTER → 2025-07-06 13:17 | Outpatient (BNV) | payer OTHER, SELFPAY | PROVIDERS: PCP Nurse Practitioner Family; Visit Provider Radiology Diagnostic Radiology | DX: R90.89 Other abnormal findings on diagnostic imaging of central nervous system (principal); Z82.49 Family history of ischemic heart disease and other diseases of the circulatory system | CPT/HCPCS: 70496 ==

== ENCOUNTER 2025-07-11 15:06 | Outpatient (AMB) | payer OTHER, SELFPAY ==
--- NOTE | 2025-07-11 14:49 | A.OFFPC_ITS ---
Intake Visit Reasons: telehealth fu cT scan results Allergies No Known Allergies (No Known Allergies*) Allergy (Verified 07/11/25 15:01) Medication List - Last Reconciled 07/11/25 by DANY MaravillaP- albuterol sulfate 90 mcg/actuation 2 puffs inhalation Q4-6H PRN 30 days cholecalciferol (vitamin D3) 125 mcg PO DAILY minoxidil 1.25 mg PO DAILY pantoprazole 40 mg PO DAILY phentermine 37.5 mg PO DAILY Tobacco use date assessed: 06/01/25 Dental Screening Dental Screen Date: 06/01/25 HPI HPI Comments History of Present Illness Details Joy 45-year-old female with mild intermitten t asthma, GERD, bilat carpal tunnel, pancreatic calcification, obesity, ANEESH, MDD, Vit D def Status post Fhx aneurysm Health Maintenance: ?Mammo 04/2025 ?PAP 2023 [facility] ?Tdap 2023 Specialists: GI first appt in Jun 2024 CORE STRIPPER Counseling Wt Mgmt, initial appt upcoming Optho wears glasses. UTD on eye exam Telehealth to review CT scan done to eval headaches and fhx aneuryms: Findings as below. She denies ataxia, tremors, change in speech, nausea, vomiting or decreased coordination. She does endorse dizziness that comes and goes w/o position change. - Family history of brain aneurysms; wee kly headaches with posterior eye focus. Uses NSAIDs. - paresthesias affecting bilateral hands , reports evaluation in the past and diagnosed with cubital tunnel syndrome. Wearing braces at bedtime - Chronic fatigue after stopping cannabi s use; reports ongoing tiredness; excessive daytime fatigue, falls asleep while driving, hypersomnolence. Interested in his sleep study - Pain in the lower extremities during p rolonged walking. Plan: Check MRI brain w/wo contrast and fu once results are back. All questions answered. Telehealth Attestation The patient has been explained that this is an interactive (audio/video) telehealth encounter and what that consists of. The patient understands and wishes to proceed. [employer] platform was used. Total time spent caring for the patient today was 18 minutes. This includes time spent before the visit reviewing the chart, time spent during the visit, and time spent after the visit on documentation, reviewing laboratory results, diagnostic imaging, medications, performing a medically necessary evaluation, counseling on diagnoses, care coordination, ordering appropriate tests, ordering appropriate medications, review of tests performed by other providers, reporting test results with the patient, communication with other healthca [facility] Medical History Dyspareunia, female Pelvic pain Change in stool Heartburn Surgical History History of Family History Father Alive and well Mother Alive and well Paternal Grandmother Colon cancer Social History Housing: House Alcohol intake: never Patient Tobacco Use Status: Former Tobacco user e-Cigarette/Vaping Use: Never Used Substance Use Type: Marijuana service: No Current occupational status: employed 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 Raman Bates, Homa Noguera, Jakob Denton and colleagues, with an educational amberly from [employer]. Physical exam (Primary Care) Tobacco/Smoking Status: Tobacco use Status Tobacco use date assessed 06/01/25 06/01/25 15:00 Patient Tobacco Use Status Former Tobacco user 06/01/25 15:00 e-Cigarette/Vaping Use Never Used 06/01/25 15:00 Thrive Assessment: Date of Thrive Assessment Date Thrive assessed 06/01/25 06/01/25 15:00 Telehealth Telehealth Telehealth Platform: [employer] Location of provider rendering services: practice address Location of patient: address on file Patient Identification confirmed using: Name, : Yes Telehealth method: voice only Patient verbally consented to treatment: Yes Patient verbally consented to billing insurance company: Yes Patient informed of any privacy concerns related to visit: Yes Minutes spent on Phone/Video with Pt.: 6 Results Reviewed Results Reviewed: CTA brain - negative for anuerysm; 9 mm nonenhancing hypodensity, right cerebellum CT/CT angio head IMPRESSION: Normal CT angiogram [place]. No main cerebral venous sinus thrombosis. No enhancing lesion. 9 mm nonenhancing hypodensity, right cerebellum. Coding Level of Care Code Tele Est Pt Level 2 (31452) Complex EM visit Add On G2211 Diagnoses Generalized headaches R51.[address] R90.89 Dizziness R42 Encounter to discuss test results Z71.2 Assessment & Plan Assessment & Plan (1) Generalized headaches: Code(s): R51.9 - Headache, unspecified Category: Medical (2) Abnormal brain CT: Code(s): R90.89 - Other abnormal findings on diagnostic imaging of central nervous system Category: Medical (3) Dizziness: Code(s): R42 - Dizziness and giddiness Category: Medical (4) Encounter to discuss test results: Code(s): Z71.2 - Person consulting for explanation of examination or test findings Plan . Orders: Orders MR head/brain wo/w con Today R42 - Dizziness and giddiness, R51.9 - Headache, unspecified, R90.89 - Other abnormal findings on diagnostic imaging of central nervous system
--- OUTSIDE RECORDS SUMMARY | 2025-07-11 16:08 | XMS_ITS | Clinical Summary ---
Author Organization [facility] Address [address] [place] [address] Phone Care Team Providers Care Tomato Paste Maker Name Role Phone Valentine Radha Doyle HEAD BANQUET WAITRESS Unavailable [phone] Unknown, Unknown Primary Care Provider Unavai [...] SEE NARRATIVE - 10/22/2020 9:32 AM EST [address] [address] Ripshear Operator: Nancy Fernandez MD OIL BURNER Cytology Report FINAL DIAGNOSIS A. PAP SMEAR [...] 52, 56, 58, 59, 66, 68) by [employer] Onclarity HR-HPV analysis. Clinical correlation is advised. This HPV test was performed at [facility], [address] [place] [address]. This test has been FDA approved for SurePath cervical cytology specimens. The accuracy and precision of this test for all other specimen sources has been verified in the Cytopathology Laboratory of the [facility] and has not been cleared or approved by the U.S. Food and Drug Administration. Clinical correlation is advised. CLINICAL HISTORY Date of Last Menstrual Period: 09-10-2020 Other Clinical Conditions: Screening Pap SPECIMEN SOURCE A: PAP SMEAR (SUREPATH) CE Patient Name: JANES FONTANA : 1980 (Age: 40) Sex: F Institution: [facility] Location: [facility] Date of Collection: 10/17/2020 Date of Reported: 10/21/2020 11:49 Results to: Karlene Doyle Amelia SALGADO us Karlene Cisneros WOOD DOWEL MACHINE OPERATOR CYTOLOGY ORDERABLES Ed ited Result - Final Performing Organization Address City/[facility]/ZIP Co de Phone Number SEE NARRATIVE * Hepatitis C antibody, qualitative (09/25/2020 4:50 PM EST) Blood us Karlene Dialmilvia WOOD DOWEL MACHINE OPERATOR LAB BLOOD ORDERABLES F inal Result Performing Organization Address City/[facility] Co de Phone Number EXTERNAL NON-INTERFACED REF LAB from Last 3 Months or Most Recently Relevant to Health Maintenance Insurance [employer] SAFETY NET PARTIAL dloHaiti NET PARTIAL HEALTH SAFETY NET PARTIAL HEALTH SAFETY NET PARTIAL HEALTH SAFETY NET PARTIAL HEALTH SAFETY NET PARTIAL HEALTH SAFETY NET PARTIAL HEALTH SAFETY NET PARTIAL HEALTH SAFETY NET PARTIAL Care Teams Tomato Paste Maker Relationship Specialty Start Date End Date Unknown, Unknown, PCP - General 09/09/23 Radha Grijalva NP [email or web address] Historical LMR Provider 07/28/17 Additional Source Comments The information contained in this document represents components of the legal health record. It is not the complete legal health record.[facility]
== END 2025-07-11 15:06 | disposition home or self-care (01) ==
LOC: HO.HMCFM 15:06
PROVIDERS: PCP Nurse Practitioner Family; Visit Provider Nurse Practitioner Family
DX: R51.9 Headache, unspecified (principal); R90.89 Other abnormal findings on diagnostic imaging of central nervous system; R42 Dizziness and giddiness; Z71.2 Person consulting for explanation of examination or test findings

== ENCOUNTER 2025-07-25 12:10 | Outpatient (REF) | payer OTHER, SELFPAY ==
--- NOTE | ~2025-07-25 | MR_ITS ---
EXAMINATION: MR BRAIN WITHOUT AND WITH CONTRAST CLINICAL INFORMATION: Evaluate nonenhancing hypodensity right cerebellum. COMPARISON: CT angiogram head 07/06/2025. TECHNIQUE: Multiplanar, multisequence MRI of the brain was obtained before and after the intravenous administration of 10 mL Gadavist. Examination performed on a 1.5 Rae Siemens high-field unit. FINDINGS: There is no diffusion restriction. There is no intracranial hemorrhage, acute infarction, mass effect, or edema. Ventricles, sulci, and cisterns are normal in size and configuration for patient age. No shift of midline. No abnormal hemosiderin deposition is identified. There is a 9 x 7 mm oval focus of T2 hyperintensity in the right cerebellar hemisphere, with no associated hemosiderin deposition, gliosis, or enhancement. This follows CSF signal on all sequences. There is no diffusion restriction. This finding is most likely a benign prominent perivascular space. There are no significant white matter signal abnormalities. No abnormal intra or extra-axial enhancement after the administration of contrast. Midline structures appear normally formed. The pituitary gland appears normal. Posterior fossa structures appear normal. Cerebellar tonsils are appropriately located. Major flow voids are preserved within the skull base. The globes and orbital contents demonstrate no abnormalities. Paranasal sinuses are clear bilaterally. Nasal septum is midline without spur. The mastoids and tympanic cavities are normally aerated. Extracranial soft tissues demonstrate no abnormalities. No suspicious bone marrow foci are present. Atlantoaxial joint is normal. MR/MR head/brain wo/w con IMPRESSION: 1. No evidence of intracranial hemorrhage, acute infarction, mass effect, or edema. No abnormal contrast enhancement. 2. There is a 9 x 7 mm oval focus of T2 hyperintense signal in the right cerebral hemisphere, following CSF signal on all sequences, and consistent with a prominent perivascular space. No further imaging or follow-up suggested. 3. Otherwise normal MRI of the brain. Electronically signed by: Julio Comer MD 07/25/2025 01:37 PM EDT
--- OUTSIDE RECORDS SUMMARY | 2025-07-25 15:28 | XMS_ITS | Clinical Summary ---
Author Organization [facility] Address [address] [place] [address] Phone Care Team Providers Care Hot End Operator Name Role Phone Valentine Radha Doyle DEHYDROGENATION CONVERTER OPERATOR Unavailable [phone] Unknown, Unknown Primary Care Provider Unavai [...] SEE NARRATIVE - 10/22/2020 9:32 AM EST [address] [address] Horticulture Worker: Nancy Fernandez MD CLASS 1 OWNER OPERATOR Cytology Report FINAL DIAGNOSIS A. PAP [...] 52, 56, 58, 59, 66, 68) by [employer] Onclarity HR-HPV analysis. Clinical correlation is advised. This HPV test was performed at [facility], [address] [place] [address]. This test has been FDA approved for SurePath cervical cytology specimens. The accuracy and precision of this test for all other specimen sources has been verified in the Cytopathology Laboratory of the [facility] and has not been cleared or approved by the U.S. Food and Drug Administration. Clinical correlation is advised. CLINICAL HISTORY Date of Last Menstrual Period: 09-10-2020 Other Clinical Conditions: Screening Pap SPECIMEN SOURCE A: PAP SMEAR (SUREPATH) CE Patient Name: JANES FONTANA : 1980 (Age: 40) Sex: F Institution: [facility] Location: [facility] Date of Collection: 10/17/2020 Date of Reported: 10/21/2020 11:49 Results to: Karlene Doyle Amelia SALGADO us Karlene Cisneros VACUUM CONDITIONER OPERATOR CYTOLOGY ORDERABLES Ed ited Result - Final Performing Organization Address City/[facility]/ZIP Co de Phone Number SEE NARRATIVE * Hepatitis C antibody, qualitative (09/25/2020 4:50 PM EST) Blood us Karlene Dialmilvia VACUUM CONDITIONER OPERATOR LAB BLOOD ORDERABLES F inal Result Performing Organization Address City/[facility] Co de Phone Number EXTERNAL NON-INTERFACED REF LAB from Last 3 Months or Most Recently Relevant to Health Maintenance Insurance [employer] SAFETY NET PARTIAL [employer] NET PARTIAL HEALTH SAFETY NET PARTIAL HEALTH SAFETY NET PARTIAL HEALTH SAFETY NET PARTIAL HEALTH SAFETY NET PARTIAL HEALTH SAFETY NET PARTIAL HEALTH SAFETY NET PARTIAL HEALTH SAFETY NET PARTIAL Care Teams Hot End Operator Relationship Specialty Start Date End Date Unknown, Unknown, PCP - General 09/09/23 Radha Grijalva NP [email or web address] Historical LMR Provider 07/28/17 Additional Source Comments The information contained in this document represents components of the legal health record. It is not the complete legal health record.[facility]
== END 2025-07-25 12:11 | disposition home or self-care (01) ==
LOC: HO.MRI 12:10
PROVIDERS: PCP Nurse Practitioner Family; Visit Provider Nurse Practitioner Family
DX: R90.89 Other abnormal findings on diagnostic imaging of central nervous system (principal); R42 Dizziness and giddiness; R51.9 Headache, unspecified
CPT/HCPCS: 70553; A9585

== ENCOUNTER → 2025-07-25 12:28 | Outpatient (BNV) | payer OTHER, SELFPAY | PROVIDERS: PCP Nurse Practitioner Family; Visit Provider Radiology Diagnostic Radiology | DX: R90.89 Other abnormal findings on diagnostic imaging of central nervous system (principal) | CPT/HCPCS: 70553 ==

== ENCOUNTER 2025-08-01 15:30 | Outpatient (AMB) | payer OTHER, SELFPAY ==
--- NOTE | 2025-08-01 15:24 | MHC.PC.OV ---
Intake Visit Reasons: review MRI Allergies No Known Allergies (No Known Allergies*) Allergy (Verified 08/01/25 16:11) Medication List - Last Reconciled 08/01/25 by [facility] albuterol sulfate 90 mcg/actuation 2 puffs inhalation Q4-6H PRN 30 days cholecalciferol (vitamin D3) 125 mcg PO DAILY minoxidil 1.25 mg PO DAILY pantoprazole 40 mg PO DAILY phentermine 37.5 mg PO DAILY Tobacco use date assessed: 08/01/25 Dental Screening Dental Screen Date: 08/01/25 Did you have a dental visit in the last 12 months?: No Did you have a dental problem in the last 6 months where you did not have access to dental care?: No Was dental information given to patient?: Patient has dentist HPI HPI Comments History of Present Illness Details Joy 45-year-old female with mild intermittent asthma, GERD, bilat carpal tunnel, pancreatic calcification, obesity, ANEESH, MDD, Vit D def Status post Fhx aneurysm Health Maintenance: ?Mammo 04/2025 ?[place] 20[place] [facility] [place] Specialists: GI first appt in Jun 2024 [employer]OS[employer]ER[employer] DRIER TENDER Counseling Wt Mgmt, initial appt upcoming Optho wears glasses. UTD on eye exam Telehealth to review MRI done to eval headaches and fhx aneuryms after abnormal CT Scan: Findings as below. She denies ataxia, tremors, change in speech, nausea, vomiting or decreased coordination. She does endorse dizziness that comes and goes w/o position change. Occasional, lasts 30 seconds to a minute. Episodic and not constant. - Family history of brain aneurysms; weekly headaches with posterior eye focus. Uses APAP. Less frequent headaches . - paresthesias affecting bilateral hands, reports evaluation in the past and diagnosed with cubital tunnel syndrome. Wearing braces at bedtime. Needs to r/s her EMGs - Chronic fatigue after stopping cannabis use; reports ongoing tiredness; excessive daytime fatigue, falls asleep while driving, hypersomnolence. HST scheduled 08/07 - Pain in the lower extremities during prolonged walking. - Started phentermine 3 weeks ago.Denies worsening of sx. Monitor BP and states WNL Plan: Refer to [facility] for headaches and fu on results. Reassured. Monitor BP and VS while taking phentermine;stop if worsening sx Conduct sleep study R/S EMG. I will fu once results are back sooner PRN All questions answered. Telehealth Attestation The patient has been explained that this is an interactive (audio/video) telehealth encounter and what that consists of. The patient understands and wishes to proceed. [employer] platform was used. Total time spent caring for the patient today was 18 minutes. This includes time spent before the visit reviewing the chart, time spent during the visit, and time spent after the visit on documentation, reviewing laboratory results, diagnostic imaging, medications, performing a medically necessary evaluation, counseling on diagnoses, care coordination, ordering appropriate tests, ordering appropriate medications, review of tests performed by other providers, reporting test results with the patient, communication with other healthca [facility] Medical History Dyspareunia, female Pelvic pain Change in stool Heartburn Surgical History History of Family History (Updated 08/01/25 @ 15:28 by Hailee Gomez [facility]) Father Alive and well Mother Alive and well Paternal Grandmother Colon cancer Paternal Uncle FH: mental illness Substance abuse Alcoholism Narcotic abuse Family/Other Substance abuse Narcotic abuse Social History (Updated 08/01/25 @ 15:28 by Hailee Gomez [facility]) Housing: House Alcohol intake: never Patient Tobacco Use Status: Former Tobacco user e-Cigarette/Vaping Use: Never Used Second Hand Smoke Exposure: No Use of substances other than those prescribed or required for medical reasons: No Substance Use Type: Marijuana service: No Current occupational status: employed 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 Raman Bates, Homa Noguera, Jakob Denton and colleagues, with an educational amberly from [employer]. Physical exam (Primary Care) Tobacco/Smoking Status: Tobacco use Status Tobacco use date assessed 08/01/25 08/01/25 15:29 Patient Tobacco Use Status Former Tobacco user 08/01/25 15:29 e-Cigarette/Vaping Use Never Used 08/01/25 15:29 Thrive Assessment: Date of Thrive Assessment Date Thrive assessed 06/01/25 08/01/25 15:29 Telehealth Telehealth Telehealth Platform: [employer] Location of provider rendering services: practice address Location of patient: address on file Patient Identification confirmed using: Name, : Yes Telehealth method: voice only Patient verbally consented to treatment: Yes Patient verbally consented to billing insurance company: Yes Patient informed of any privacy concerns related to visit: Yes Minutes spent on Phone/Video with Pt.: 9 Results Reviewed Results Reviewed: CTA brain - negative for anuerysm; 9 mm nonenhancing hypodensity, right cerebellum CT/CT angio head IMPRESSION: Normal CT angiogram [place] of [place]. No main cerebral venous sinus thrombosis. No enhancing lesion. 9 mm nonenhancing hypodensity, right cerebellum. EXAMINATION: MR BRAIN WITHOUT AND WITH CONTRAST CLINICAL INFORMATION: Evaluate nonenhancing hypodensity right cerebellum. COMPARISON: CT angiogram head 07/06/2025. TECHNIQUE: Multiplanar, multisequence MRI of the brain was obtained before and after the intravenous administration of 10 mL Gadavist. Examination performed on a 1.5 Rae Siemens high-field unit. FINDINGS: There is no diffusion restriction. There is no intracranial hemorrhage, acute infarction, mass effect, or edema. Ventricles, sulci, and cisterns are normal in size and configuration for patient age. No shift of midline. No abnormal hemosiderin deposition is identified. There is a 9 x 7 mm oval focus of T2 hyperintensity in the right cerebellar hemisphere, with no associated hemosiderin deposition, gliosis, or enhancement. This follows CSF signal on all sequences. There is no diffusion restriction. This finding is most likely a benign prominent perivascular space. There are no significant white matter signal abnormalities. No abnormal intra or extra-axial enhancement after the administration of contrast. Midline structures appear normally formed. The pituitary gland appears normal. Posterior fossa structures appear normal. Cerebellar tonsils are appropriately located. Major flow voids are preserved within the skull base. The globes and orbital contents demonstrate no abnormalities. Paranasal sinuses are clear bilaterally. Nasal septum is midline without spur. The mastoids and tympanic cavities are normally aerated. Extracranial soft tissues demonstrate no abnormalities. No suspicious bone marrow foci are present. Atlantoaxial joint is normal. MR/MR head/brain wo/w con IMPRESSION: 1. No evidence of intracranial hemorrhage, acute infarction, mass effect, or edema. No abnormal contrast enhancement. 2. There is a 9 x 7 mm oval focus of T2 hyperintense signal in the right cerebral hemisphere, following CSF signal on all sequences, and consistent with a prominent perivascular space. No further imaging or follow-up suggested. 3. Otherwise normal MRI of the brain. Electronically signed by: Julio Comer MD 07/25/2025 01:37 PM EDT RP Coding Level of Care Code Tele Est Pt Level 2 (33034) Complex EM visit Add On G2211 Diagnoses Encounter to discuss test results Z71.[address] R90.89 Family history of brain aneurysm Z82.49 Dizziness R42 Generalized headaches R51.9 Assessment & Plan Assessment & Plan (1) Encounter to discuss test results: Code(s): Z71.2 - Person consulting for explanation of examination or test findings (2) Abnormal brain CT: Code(s): R90.89 - Other abnormal findings on diagnostic imaging of central nervous system Category: Medical (3) Family history of brain aneurysm: Code(s): Z82.49 - Family history of ischemic heart disease and other diseases of the circulatory system Category: Medical (4) Dizziness: Code(s): R42 - Dizziness and giddiness Category: Medical (5) Generalized headaches: Code(s): R51.9 - Headache, unspecified Category: Medical Plan . Orders: Referrals Neurology Referral R42 - Dizziness and giddiness, R90.89 - Other abnormal findings on diagnostic imaging of central nervous system, Z82.49 - Family history of ischemic heart disease and other diseases of the circulatory system
--- OUTSIDE RECORDS SUMMARY | 2025-08-01 21:40 | XMS_ITS | Clinical Summary ---
Author Organization [facility] Address [address] [place] [id number] Phone Care Team Providers Care Silk Screen Operator Name Role Phone Valentine Radha Doyle JET DYEING MACHINE TENDER Unavailable [phone] Unknown, Unknown Primary Care Provider Unavai [...] SEE NARRATIVE - 10/22/2020 9:32 AM EST [address] [address] Community Associate: Nancy Fernandez MD VENDING MACHINE SERVICER Cytology Report FINAL DIAGNOSIS A. PAP SMEAR [...] 52, 56, 58, 59, 66, 68) by [employer] Onclarity HR-HPV analysis. Clinical correlation is advised. This HPV test was performed at [facility], [address] [place] [address]. This test has been FDA approved for SurePath cervical cytology specimens. The accuracy and precision of this test for all other specimen sources has been verified in the Cytopathology Laboratory of the [facility] and has not been cleared or approved by the U.S. Food and Drug Administration. Clinical correlation is advised. CLINICAL HISTORY Date of Last Menstrual Period: 09-10-2020 Other Clinical Conditions: Screening Pap SPECIMEN SOURCE A: PAP SMEAR (SUREPATH) CE Patient Name: JANES FONTANA : 1980 (Age: 40) Sex: F Institution: [facility] Location: [facility] Date of Collection: 10/17/2020 Date of Reported: 10/21/2020 11:49 Results to: Karlene Doyle Amelia SALGADO us Karlene Cisneros DRAW FRAME OPERATOR CYTOLOGY ORDERABLES Ed ited Result - Final Performing Organization Address City/[facility]/ZIP Co de Phone Number SEE NARRATIVE * Hepatitis C antibody, qualitative (09/25/2020 4:50 PM EST) Blood us Karlene Dialmilvia DRAW FRAME OPERATOR LAB BLOOD ORDERABLES F inal Result Performing Organization Address City/[facility] Co de Phone Number EXTERNAL NON-INTERFACED REF LAB from Last 3 Months or Most Recently Relevant to Health Maintenance Insurance [employer] SAFETY NET PARTIAL [employer] NET PARTIAL HEALTH SAFETY NET PARTIAL HEALTH SAFETY NET PARTIAL HEALTH SAFETY NET PARTIAL HEALTH SAFETY NET PARTIAL HEALTH SAFETY NET PARTIAL HEALTH SAFETY NET PARTIAL HEALTH SAFETY NET PARTIAL Care Teams Silk Screen Operator Relationship Specialty Start Date End Date Unknown, Unknown, PCP - General 09/09/23 Radha Grijalva NP [email or web address] Historical LMR Provider 07/28/17 Additional Source Comments The information contained in this document represents components of the legal health record. It is not the complete legal health record.[facility]
== END 2025-08-01 16:37 | disposition home or self-care (01) ==
LOC: HO.HMCFM 15:30
PROVIDERS: PCP Nurse Practitioner Family; Visit Provider Nurse Practitioner Family
DX: Z71.2 Person consulting for explanation of examination or test findings (principal); R90.89 Other abnormal findings on diagnostic imaging of central nervous system; Z82.49 Family history of ischemic heart disease and other diseases of the circulatory system; R42 Dizziness and giddiness; R51.9 Headache, unspecified

== ENCOUNTER → 2025-08-09 14:52 | Outpatient (REF) | payer OTHER, SELFPAY ==
--- OUTSIDE RECORDS SUMMARY | 2025-08-09 17:47 | XMS_ITS | Clinical Summary ---
Author Organization [facility] Address [address] [place] [id number] Phone Care Team Providers Care Outside Machinist Name Role Phone Valentine Radha Doyle ONCOLOGY PHYSICIAN Unavailable [phone] Unknown, Unknown Primary Care Provider Unavai [...] SEE NARRATIVE - 10/22/2020 9:32 AM EST [address] [address] Front Attendant: Nancy Fernandez MD ORTHOPAEDIC NURSE Cytology Report FINAL DIAGNOSIS A. PAP SMEAR [...] 52, 56, 58, 59, 66, 68) by [employer] Onclarity HR-HPV analysis. Clinical correlation is advised. This HPV test was performed at [facility], [address] [place] [address]. This test has been FDA approved for SurePath cervical cytology specimens. The accuracy and precision of this test for all other specimen sources has been verified in the Cytopathology Laboratory of the [facility] and has not been cleared or approved by the U.S. Food and Drug Administration. Clinical correlation is advised. CLINICAL HISTORY Date of Last Menstrual Period: 09-10-2020 Other Clinical Conditions: Screening Pap SPECIMEN SOURCE A: PAP SMEAR (SUREPATH) CE Patient Name: JNAES FONTANA : 1980 (Age: 40) Sex: F Institution: [facility] Location: [facility] Date of Collection: 10/17/2020 Date of Reported: 10/21/2020 11:49 Results to: Karlene Doyle Amelia SALGADO us Karlene Cisneros WET PRESS TENDER CYTOLOGY ORDERABLES Ed ited Result - Final Performing Organization Address City/[facility]/ZIP Co de Phone Number SEE NARRATIVE * Hepatitis C antibody, qualitative (09/25/2020 4:50 PM EST) Blood us Karlene Dialmilvia WET PRESS TENDER LAB BLOOD ORDERABLES F inal Result Performing Organization Address City/[facility] Co de Phone Number EXTERNAL NON-INTERFACED REF LAB from Last 3 Months or Most Recently Relevant to Health Maintenance Insurance [employer] SAFETY NET PARTIAL [employer] NET PARTIAL HEALTH SAFETY NET PARTIAL HEALTH SAFETY NET PARTIAL HEALTH SAFETY NET PARTIAL HEALTH SAFETY NET PARTIAL HEALTH SAFETY NET PARTIAL HEALTH SAFETY NET PARTIAL HEALTH SAFETY NET PARTIAL Care Teams Outside Machinist Relationship Specialty Start Date End Date Unknown, Unknown, PCP - General 09/09/23 Radha Grijalva NP [email or web address] Historical LMR Provider 07/28/17 Additional Source Comments The information contained in this document represents components of the legal health record. It is not the complete legal health record.[facility]
== END ==
LOC: HO.SL 14:52
PROVIDERS: PCP Nurse Practitioner Family; Visit Provider Nurse Practitioner Family
DX: R40.0 Somnolence (principal); G47.10 Hypersomnia, unspecified
CPT/HCPCS: 95806

== ENCOUNTER → 2025-08-09 15:12 | Outpatient (BNV) | payer OTHER, SELFPAY | PROVIDERS: PCP Nurse Practitioner Family; Visit Provider Internal Medicine | DX: G47.10 Hypersomnia, unspecified (principal) | CPT/HCPCS: 95806 ==

== ENCOUNTER 2025-08-23 15:15 | Outpatient (AMB) | payer OTHER, SELFPAY ==
--- NOTE | 2025-08-23 07:31 | A.OFFPC_ITS ---
Vital Signs 3 08/23/25 16:07 Height 5 ft 1 in Weight 195 lb BMI 36.8 Intake Visit Reasons: review sleep study results Intake Note: Telehealth to review sleep study results. Corporate Claims Examiner Required: No Allergies No Known Allergies (No Known Allergies*) Allergy (Verified 08/23/25 16:06) Medication List - Last Reconciled 08/23/25 by Leann Cortes, [facility]- albuterol sulfate 90 mcg/actuation 2 puffs inhalation Q4-6H PRN 30 days bisacodyl (Dulcolax (bisacodyl)) 20 mg (4 x 5 mg) PO ONCE 1 day cholecalciferol (vitamin D3) 125 mcg PO DAILY minoxidil 1.25 mg PO DAILY pantoprazole 40 mg PO DAILY phentermine 37.5 mg PO QAM polyethylene glycol 3350 (Miralax) 238 grams PO ONCE 1 day Tobacco use date assessed: 08/23/25 Dental Screening Dental Screen Date: 08/23/25 Did you have a dental visit in the last 12 months?: Yes Did you have a dental problem in the last 6 months where you did not have access to dental care?: No Was dental information given to patient?: Patient has dentist HPI HPI Comments 2 History of Present Illness0 Details Joy 45-year-old female with mild intermitten t asthma, GERD, bilat carpal tunnel, pancreatic calcification, obesity, ANEESH, MDD, Vit D def Status post Fhx aneurysm Health Maintenance: ?Mammo 04/2025 ?PAP 2023 [facility] ?Tdap 2023 Specialists: GI first appt in Jun 2024 NAVAL DESIGNER Counseling Wt Mgmt, initial appt upcoming Optho wears glasses. UTD on eye exam History of Present Illness The patient is a 45-year-old female presenting for review of home sleep study results. Suspected Sleep Apnea and Nocturnal Hypoxemia: - A recent home sleep study did not show any obvious obstructive sleep apnea, with an average of one event per hour. - The study did show low blood oxygen le vels during sleep, with saturation dipping to 80%. Obesity: - The patient is taking phentermine once daily for weight management. - She has lost approximately 20 pounds, with her most recent weight recorded as 195 pounds. - She reports feeling better overall wit h increased energy since losing weight. Headaches: - The patient reports intermittent heada ches that do not last long. - She takes Tylenol or Advil for relief. Side effects of medication: - The patient notes her heart rate is so metimes elevated for a few minutes while taking phentermine, based on her watch. - She has normal blood pressure readings when using a cuff and denies any associated chest pain. Review of Systems - Constitutional: Reports feeling better overall, having more energy, and a weight loss of 20 pounds. - Neurological: Reports intermittent hea daches that are of short duration. - Cardiovascular: Reports occasional epi sodes of an elevated heart rate lasting a few minutes. Denies chest pain. - Respiratory: No specific symptoms repo rted by the patient; however, a sleep study revealed hypoxemia during sleep. Physical Exam No physical exam was performed during this telehealth visit. Results: See below - Home sleep study: Results showed no ob vious obstructive sleep apnea with approximately one event per hour. - Home sleep study: Revealed low blood o xygen levels during sleep, with saturation dipping to 80%. Assessment and Plan 1. Suspected Obstructive Sleep Apnea and Nocturnal Hypoxemia - The patient's home sleep study was neg ative for ANANT (AHI ~1) but was significant for nocturnal hypoxemia with saturation drops to 80%. - Despite the negative home study, a str afshan suspicion for a sleep-related breathing disorder remains, especially given the hypoxemia, which could be contributing to her headaches. - Will place an order for a formal, in-l ab sleep study (polysomnography) for a more comprehensive evaluation. - The respiratory therapy department kacie l contact the patient to schedule the test. 2. Obesity - The patient is responding well to phen termine, with a 20-pound weight loss and improvement in overall energy. - Her current weight is 195 lbs. - She reports her blood pressure is norm al at home and denies chest pain, although she has noted a transiently elevated heart rate. - Will continue phentermine 1 tablet dariela ly. - She was advised to continue monitoring her blood pressure and heart rate. 3. Headaches - The patient continues to experience in termittent headaches. - These may be secondary to an underlyin g sleep disorder. - She will continue to use Tylenol or Ad anayeli as needed for symptomatic relief. - Further management will be guided by jesika garvey results of the in-lab sleep study. Patient was given time to ask questions. All questions were answered to their satisfaction. Telehealth Attestation This visit was conducted via a synchronous audio-video telehealth platform. The information documented reflects the communication that occurred during the visit. The patient has been explained that this is an interactive (audio/video) telehealth encounter and what that consists of. The patient understands and wishes to proceed. [employer] platform was used. Total time spent caring for the patient today was 15 minutes. This includes time spent before the visit reviewing the chart, time spent during the visit, and time spent after the visit on documentation, reviewing laboratory results, diagnostic imaging, medications, performing a medically necessary evaluation, counseling on diagnoses, care coordination, ordering appropriate tests, ordering appropriate medications, review of tests performed by other providers, reporting test results with the patient, communication with other healthcare providers. [facility] Medical History Dyspareunia, female Pelvic pain Change in stool Heartburn Surgical History History of Family History (Updated 08/01/25 @ 15:[address] [facility]) Father Alive and well Mother Alive and well Paternal Grandmother Colon cancer Paternal Uncle FH: mental illness Substance abuse Alcoholism Narcotic abuse Family/Other Substance abuse Narcotic abuse Social History (Updated 08/01/25 @ 15:[address] 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 Raman Bates, Homa Noguera, Jakob Denton and colleagues, with an educational amberly from [employer]. Physical exam (Primary Care) Tobacco/Smoking Status: Tobacco use Status Tobacco use date assessed 08/23/25 08/23/25 15:14 Patient Tobacco Use Status Former Tobacco user 08/23/25 07:32 e-Cigarette/Vaping Use Never Used 08/23/25 07:32 Thrive Assessment: Date of Thrive Assessment Date Thrive assessed 06/01/25 08/23/25 07:32 Telehealth Telehealth Telehealth Platform: Be[employer]Ex Location of provider rendering services: practice address Location of patient: address on file Patient Identification confirmed using: Name, : Yes Telehealth method: voice only Patient verbally consented to treatment: Yes Patient verbally consented to billing insurance company: Yes Patient informed of any privacy concerns related to visit: Yes Minutes spent on Phone/Video with Pt.: 5 Results Reviewed Results Reviewed: Coding Level of Care Code Tele Est Pt Level 2 (04503) Complex EM visit Add On G2211 Diagnoses Encounter to discuss test results Z71.2 Daytime somnolence R40.0 Generalized headaches R51.9 Nocturnal hypoxia G47.34 Severe obesity with body mass index (BMI) of 36.0 to 36.9 with serious comorbidity E66.01; Z68.36 Assessment & Plan Assessment & Plan (1) Encounter to discuss test results: Code(s): Z71.2 - Person consulting for explanation of examination or test findings Category: Medical (2) Daytime somnolence: Code(s): R40.0 - Somnolence Category: Medical (3) Generalized headaches: Code(s): R51.9 - Headache, unspecified Category: Medical (4) Nocturnal hypoxia: Code(s): G47.34 - Idiopathic sleep related nonobstructive alveolar hypoventilation Category: Medical (5) Severe obesity with body mass index (BMI) of 36.0 to 36.9 with serious comorbidity: Comment: referred to metabolic clinic Code(s): E66.01 - Morbid (severe) obesity due to excess calories; Z68.36 - Body mass index [BMI] 36.0-36.9, adult Category: Medical Plan . Orders: Orders 2 RT PSG in-lab sleep study Today E66.01 - Morbid (severe) obesity due to excess calories, G47.34 - Idiopathic sleep related nonobstructive alveolar hypoventilation, R40.0 - Somnolence, R51.9 - Headache, unspecified, Z68.36 - Body mass index [BMI] 36.0-36.9, adult Medications: Discontinued 2 phentermine must administer 30 minutes before or 1-2 hours after breakfast Discontinued Reason: Duplicate 37.5 mg PO DAILY 30 caps 0RF E66.9 - Obesity, unspecified
[2025-08-23 16:07] VITALS: BMI 36.8
--- OUTSIDE RECORDS SUMMARY | 2025-08-23 18:26 | XMS_ITS | Clinical Summary ---
Author Organization [facility] Address [address] [place] [address] Phone Care Team Providers Care Bank Officer Name Role Phone Valentine Radha Doyle INGOT WEIGHER Unavailable [phone] Unknown, Unknown Primary Care Provider Unavai [...] on patient's age to complete this topic IPV VACCINES Aged Out No longer eligi ble [...] SEE NARRATIVE - 10/22/2020 9:32 [place] [address] Stretching Machine Operator: Nancy Fernandez MD DAIRY CATTLE FARM MANAGER Cytology Report FINAL DIAGNOSIS A. PAP SMEAR [...] 52, 56, 58, 59, 66, 68) by [employer] Onclarity HR-HPV analysis. Clinical correlation is advised. This HPV test was performed at [facility], [address] [place] [address]. This test has been FDA approved for SurePath cervical cytology specimens. The accuracy and precision of this test for all other specimen sources has been verified in the Cytopathology Laboratory of the [facility] and has not been cleared or approved by the U.S. Food and Drug Administration. Clinical correlation is advised. CLINICAL HISTORY Date of Last Menstrual Period: 09-10-2020 Other Clinical Conditions: Screening Pap SPECIMEN SOURCE A: PAP SMEAR (SUREPATH) CE Patient Name: JANES FONTANA : 1980 (Age: 40) Sex: F Institution: [facility] Location: [facility] Date of Collection: 10/17/2020 Date of Reported: 10/21/2020 11:49 Results to: Karlene Doyle Amelia SALGADO us Karlene Cisneros LIQUOR BLENDER CYTOLOGY ORDERABLES Ed ited Result - Final Performing Organization Address City/[facility] Co de Phone Number SEE NARRATIVE * Hepatitis C antibody, qualitative (09/25/2020 4:50 PM EST) Blood us Karlene Robersonjayme LIQUOR BLENDER LAB BLOOD BKR ORDERABL ES Final Result Performing Organization Address City/[facility] Co de Phone Number EXTERNAL NON-INTERFACED REF LAB from Last 3 Months or Most Recently Relevant to Health Maintenance Insurance [employer] SAFETY NET PARTIAL [employer] SAFETY NET PARTIAL HEALTH SAFETY NET PARTIAL HEALTH SAFETY NET PARTIAL HEALTH SAFETY NET PARTIAL HEALTH SAFETY NET PARTIAL HEALTH SAFETY NET PARTIAL HEALTH SAFETY NET PARTIAL HEALTH SAFETY NET PARTIAL Care Teams Bank Officer Relationship Specialty Start Date End Date Unknown, Unknown, PCP - General 09/09/23 Radha Grijalva NP [email or web address] Historical LMR Provider 07/28/17 Additional Source Comments The information contained in this document represents components of the legal health record. It is not the complete legal health record.[facility]
== END 2025-08-23 16:10 | disposition home or self-care (01) ==
LOC: HO.HMCFM 15:15
PROVIDERS: PCP Nurse Practitioner Family; Visit Provider Nurse Practitioner Family
DX: Z71.2 Person consulting for explanation of examination or test findings (principal); R40.0 Somnolence; R51.9 Headache, unspecified; G47.34 Idiopathic sleep related nonobstructive alveolar hypoventilation; E66.01 Morbid (severe) obesity due to excess calories; Z68.36 Body mass index [BMI] 36.0-36.9, adult

== ENCOUNTER 2025-08-24 11:45 | Day surgery (SDC) | payer OTHER, SELFPAY ==
--- NOTE | 2025-08-21 09:46 | HO.ANESPROP2 ---
Documented by User: Kelly Reinoso NP 08/21/25 09:47 HPI - Anesthesia Eval Consult details Narrative: 45yo F for Upper Endoscopy and Colonoscopy BMI 42.9 PMFSH Active Problems Active Problems: All Active Problems Dizziness (Acute) Abnormal brain CT (Acute) HLD (hyperlipidemia) (Acute) History of mammogram (Acute ~04/2025) History of Papanicolaou smear of cervix (Acute ~2023) Leg pain, bilateral (Acute) Generalized headaches (Acute) Daytime somnolence (Acute) Vitamin D deficiency (Acute) Paresthesia of hand, bilateral (Acute) Family history of brain aneurysm (Acute) Obesity (BMI 30-39.9) (Acute) Dyspareunia, female (Acute) Pelvic pain (Acute) Encounter for well woman exam with routine gynecological exam (Acute) Chronic GERD (Acute) Mild intermittent asthma in adult without complication (Acute) Encounter for general adult medical examination without abnormal findings (Acute ~06/01/25) Cervical cancer screening (Acute) ANEESH (generalized anxiety disorder) (Acute) MDD (major depressive disorder), recurrent episode (Acute) Severe obesity with body mass index (BMI) of 36.0 to 36.9 with serious comorbidity (Acute) Change in stool (Acute) Heartburn (Acute) Past Medical History Medical History Asthma Dyspareunia, female Pelvic pain Change in stool Heartburn Family History Family History Father Alive and well Mother Alive and well Paternal Grandmother Colon cancer Paternal Uncle FH: mental illness Substance abuse Alcoholism Narcotic abuse Family/Other Substance abuse Narcotic abuse Surgical History Surgical History History of Social History Social History Housing: House Alcohol intake: never Patient Tobacco Use Status: Former Tobacco user e-Cigarette/Vaping Use: Never Used Second Hand Smoke Exposure: No Use of substances other than those prescribed or required for medical reasons: No Substance Use Type: Marijuana Are you DNR?: No Advance Directives: No Advance Directives Information Provided: Yes : No service: No Current occupational status: employed 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 Cognitive needs: No Hearing needs: No Vision needs: Yes Meds Allergies Allergy/AdvReac Type Severity Reaction Status Date / Time No Known Allergies (No Known Allergy Verified 08/23/25 16:06 Allergies*) Home Medications ?Medication ?Instructions ?Recorded ?Confirmed ?Last Taken ?Type minoxidil 2.5 mg tablet 1.25 mg PO DAILY 01/15/25 08/23/25 Unknown History phentermine 37.5 mg tablet 37.5 mg PO QAM 08/22/25 08/23/25 Unknown History Assessment and Plan Assessment Anesthesia Assessment: Chart Reviewed Documented by User: Tanisha Kunz MD 08/24/25 13:47 PMFSH Past Medical History Medical History Asthma Dyspareunia, female Pelvic pain Change in stool Heartburn Family History Family History Father Alive and well Mother Alive and well Paternal Grandmother Colon cancer Paternal Uncle FH: mental illness Substance abuse Alcoholism Narcotic abuse Family/Other Substance abuse Narcotic abuse Surgical History Surgical History History of History of Problems with Anesthesia: No Social History Social History Housing: House Alcohol intake: never Patient Tobacco Use Status: Former Tobacco user e-Cigarette/Vaping Use: Never Used Second Hand Smoke Exposure: No Use of substances other than those prescribed or required for medical reasons: No Substance Use Type: Marijuana Are you DNR?: No Advance Directives: No Advance Directives Information Provided: Yes : No service: No Current occupational status: employed 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 Cognitive needs: No Hearing needs: No Vision needs: Yes Meds Allergies Allergy/AdvReac Type Severity Reaction Status Date / Time No Known Allergies (No Known Allergy Verified 08/23/25 16:06 Allergies*) Home Medications ?Medication ?Instructions ?Recorded ?Confirmed ?Last Taken ?Type minoxidil 2.5 mg tablet 1.25 mg PO DAILY 01/15/25 08/23/25 Unknown History phentermine 37.5 mg tablet 37.5 mg PO QAM 08/22/25 08/23/25 Unknown History Exam Airway Mallampati Class: II TM Dist: >3cm Neck ROM: Full Loose/Missing/Broken Teeth: No Heart: RRR Lungs: CTA Assessment and Plan Assessment Anesthesia Assessment: Anesthesia Plan Discussed Final Anesthetic Review History of Problems with Anesthesia: No NPO: Yes ASA Class: II Final Preanesthetic Review: Meds/Allgs Chart Reviewed, Consent Obtained/Reviewed and Anes Risks/Benef Reviewed Patient Risk: Low Procedure Risk: Intermediate Anesthetic Plan Anesthetic Plan: MAC: Disposition: Standard PACU
[2025-08-22 09:22] VITALS: BMI 38.0
[2025-08-24 12:25] VITALS: BMI 36.3
[2025-08-24 12:38] VITALS: BP 113/70; PULSE 91; RESP 16; TEMP 36.2; O2SAT 97
[2025-08-24 12:44] LABS: UPreg QC Valid YES
[2025-08-24] MEDS: Lactated Ringers 1,000 ML 100 ML IVCONT (12:58)
--- NOTE | 2025-08-24 13:37 | MHC.SHP ---
Pre-Procedural Eval Section A - 24 Hr Update-Section A only Date of Service: 08/24/25 Section B - Complete if H&P > 30 days Chief Complaint: GERD, rectal bleeding Details of Present Illness: Pelvic pain Change in stool Heartburn Present Medications: see Short Stay Collaborative assessment Allergies: Allergies Allergy/AdvReac Type Severity Reaction Status Date / Time No Known Allergies (No Known Allergy Verified 08/23/25 16:06 Allergies*) Review of Systems Review of Systems Comment: Ten point ROS negative Exam Exam Comment: Gen appear: No acute distress HEENT: no icterus Chest: No overt resp distress Abd: soft, nontender, nondistended Psych: Stable affect, answering questions appropriately Neuro: A/Ox3 noted to move all extremities spontaneously Ext: no peripheral edema Plan Diagnosis/Plan: Unchanged I have reviewed the history and physical and performed a pertinent physical examination on my patient. No changes have occurred unless specified. Time Spent With Patient Time: Total time managing care of this patient today ____ minutes.
--- NOTE | 2025-08-24 14:26 | P.OPN-COLO_ITS ---
Colonoscopy Operative Note Operative Note Date of Service: 08/24/25 Narrative: Procedure: Upper endoscopy and colonoscopy Indication: GERD, rectal bleeding Endoscopist: Clementine Hernandez MD Anesthesia Provider: Dr Tanisha Kunz Anesthesia type: MAC Instrument: [id number]-[id number] and [id number]-[id number] EGD Procedure:?? The procedure, indications, preparation and potential complications were reviewed with the patient, who indicated understanding and gave written informed consent to proceed. The endoscope was introduced through the mouth, and advanced to the 2nd part of the duodenum. The mucosa was carefully examined on slow withdrawal of the endoscope. The patient tolerated the procedure well. There were no immediate complications.? EGD Findings:? * Esophagus:? Normal esophageal mucosa was noted. The Z-line was at 32 cm displaced by a small hiatal hernia with the diaphragmatic pinch at 34 cm. Cold forceps biopsies were taken from middle and lower esophagus to rule out eosinophilic esophagitis. * Stomach:? Normal gastric mucosa. Retroflexion was performed in the cardia that showed Hill grade 3 hiatal hernia. Cold forceps biopsies were taken from the stomach body and antrum. * Duodenum:? Normal duodenal mucosa. Cold forceps biopsies were taken from the duodenal bulb and 2nd portion of the duodenum to rule out celiac sprue. Colonoscopy Procedure:? The patient was then turned for the colonoscopy. An abdominal binder was placed at the lower abdomen. A digital rectal exam was performed which was normal.? A distal attachment cap was affixed to the tip of the scope and the colonoscope was then inserted through the anus and advanced through the colon and advanced to the cecum at 70 cm and terminal ileum.? Appendiceal orifice and ileocecal valve were identified. Mucosa was carefully examined under high definition white light as the instrument was slowly withdrawn in a retrograde panoramic fashion. Retroflexion was performed in ascending colon and rectum. The procedure was not difficult. The quality of the prep was BBPS: 3+3+3 = adequate Withdrawal time 10 minutes Limitations: No limitations Findings: Mucosa: Normal colon and terminal ileum mucosa. Cold forceps biopsies were taken from the right and left side of the colon to rule out microscopic colitis. Protruding lesions: * 1 sessile polyp of size 2 mm noted in ascending colon. Cold snare polypectomy was performed. The polyp was completely removed and retrieved. * 1 sessile polyp of size 6 mm noted in transverse colon. Cold snare polypectomy was performed. The polyp was completely removed and retrieved. * Medium internal hemorrhoids without stigmata of recent bleeding. Impression: 1. Normal esophagus (biopsy) 2. Hiatal hernia 3. Normal stomach (biopsy) 4. Normal duodenum (biopsy) 5. Normal colon and terminal ileum mucosa (biopsy) 6. Total of 2 polyps removed 7. Internal hemorrhoids Recommendations:?? * Follow-up path results * Consider barium swallow exam * Avoid NSAIDs * H Pylori treatment if biopsies + * Repeat colonoscopy in 5 years if both polyps are adenomas otherwise 7 years.
[2025-08-24 14:30] VITALS: BP 129/67; PULSE 96; RESP 18; TEMP 36.6; O2SAT 100
[2025-08-24 14:45] VITALS: BP 145/95; PULSE 81; RESP 13; O2SAT 98
[2025-08-24 15:00] VITALS: BP 145/83; PULSE 85; RESP 17; TEMP 36.6; O2SAT 97
== END 2025-08-24 15:13 | disposition home or self-care (01) ==
PROVIDERS: Nurse Practitioner; PCP Nurse Practitioner Family; Visit Provider Internal Medicine
PROC: (CPT 45385; principal; 2025-08-24 13:00)
DX: K62.5 Hemorrhage of anus and rectum (principal); D12.2 Benign neoplasm of ascending colon; D12.3 Benign neoplasm of transverse colon; K64.8 Other hemorrhoids; K21.9 Gastro-esophageal reflux disease without esophagitis; R14.0 Abdominal distension (gaseous); R10.13 Epigastric pain; K20.90 Esophagitis, unspecified without bleeding; K29.70 Gastritis, unspecified, without bleeding; K44.9 Diaphragmatic hernia without obstruction or gangrene; R74.01 Elevation of levels of liver transaminase levels; E55.9 Vitamin D deficiency, unspecified; N94.10 Unspecified dyspareunia; Z79.899 Other long term (current) drug therapy; Z87.891 Personal history of nicotine dependence
CPT/HCPCS: 45385; 45380; 43239; 81025; 88305; 88313; 88342; J2003; J2704

== ENCOUNTER → 2025-08-24 11:45 | Outpatient (BNV) | payer OTHER, SELFPAY | PROVIDERS: PCP Nurse Practitioner Family; Visit Provider Internal Medicine | DX: K21.9 Gastro-esophageal reflux disease without esophagitis (principal); K62.5 Hemorrhage of anus and rectum; K63.5 Polyp of colon; K64.8 Other hemorrhoids | CPT/HCPCS: 43239; 45385 ==

== ENCOUNTER → 2025-09-19 21:31 | Outpatient (REF) | payer OTHER, SELFPAY ==
--- OUTSIDE RECORDS SUMMARY | 2025-09-20 01:05 | XMS_ITS | Clinical Summary ---
Author Organization [facility] Address [address] [place] [id number] Phone Care Team Providers Care Turbine Technician Name Role Phone Valentine Radha Doyle LOOM SETTER FOURDRINIER Unavailable [phone] Unknown, Unknown Primary Care Provider Unavai [...] SEE NARRATIVE - 10/22/2020 9:32 AM EST [address] [address] Management And Budget Analyst: Nancy Fernandez MD GOLD LETTERER Cytology Report FINAL DIAGNOSIS A. PAP SMEAR [...] 52, 56, 58, 59, 66, 68) by [employer] Onclarity HR-HPV analysis. Clinical correlation is advised. This HPV test was performed at [facility], [address] [place] [address]. This test has been FDA approved for SurePath cervical cytology specimens. The accuracy and precision of this test for all other specimen sources has been verified in the Cytopathology Laboratory of the [facility] and has not been cleared or approved by the U.S. Food and Drug Administration. Clinical correlation is advised. CLINICAL HISTORY Date of Last Menstrual Period: 09-10-2020 Other Clinical Conditions: Screening Pap SPECIMEN SOURCE A: PAP SMEAR (SUREPATH) CE Patient Name: JANES FONTANA : 1980 (Age: 40) Sex: F Institution: [facility] Location: [facility] Date of Collection: 10/17/2020 Date of Reported: 10/21/2020 11:49 Results to: Karlene Doyle Amelia SALGADO us Karlene Cisneros [facility] CYTOLOGY ORDERABLES Ed ited Result - Final Performing Organization Address City/[facility]/ZIP Co de Phone Number SEE NARRATIVE * Hepatitis C antibody, qualitative (09/25/2020 4:50 PM EST) Blood us Karlene Robersonjayme [facility] LAB BLOOD BKR ORDERABL ES Final Result Performing Organization Address City/[facility] Co de Phone Number EXTERNAL NON-INTERFACED REF LAB from Last 3 Months or Most Recently Relevant to Health Maintenance Insurance [employer] NET PARTIAL MYR NET PARTIAL HEALTH SAFETY NET PARTIAL HEALTH SAFETY NET PARTIAL HEALTH SAFETY NET PARTIAL HEALTH SAFETY NET PARTIAL HEALTH SAFETY NET PARTIAL HEALTH SAFETY NET PARTIAL HEALTH SAFETY NET PARTIAL Care Teams Turbine Technician Relationship Specialty Start Date End Date Unknown, Unknown, PCP - General 09/09/23 Radha Grijalva NP [email or web address] Historical LMR Provider 07/28/17 Additional Source Comments The information contained in this document represents components of the legal health record. It is not the complete legal health record.[facility]
== END ==
LOC: HO.SL 21:31
PROVIDERS: PCP Nurse Practitioner Family; Visit Provider Nurse Practitioner Family
DX: G47.34 Idiopathic sleep related nonobstructive alveolar hypoventilation (principal); R40.0 Somnolence; R51.9 Headache, unspecified; E66.01 Morbid (severe) obesity due to excess calories; Z68.36 Body mass index [BMI] 36.0-36.9, adult
CPT/HCPCS: 95810

== ENCOUNTER → 2025-09-19 21:36 | Outpatient (BNV) | payer OTHER, SELFPAY | PROVIDERS: PCP Nurse Practitioner Family; Visit Provider Internal Medicine | DX: G47.33 Obstructive sleep apnea (adult) (pediatric) (principal) | CPT/HCPCS: 95810 ==

== ENCOUNTER 2025-10-03 08:08 | Outpatient (AMB) | payer OTHER, SELFPAY ==
--- OUTSIDE RECORDS SUMMARY | 2025-10-03 08:11 | XMS_ITS | Clinical Summary ---
Author Organization [facility] Address [address] [place] [id number] Phone Care Team Providers Care Product Development Manager Name Role Phone Valentine Radha Doyle CLIENT TECHNICAL SPECIALIST Unavailable [phone] Unknown, Unknown Primary Care Provider Unavai [...] NARRATIVE - 10/22/2020 9:32 AM EST [address] [address] Marketing [employer]: Nancy Fernandez MD LOTTERY CLERK Cytology Report FINAL DIAGNOSIS A. PAP SMEAR [...] 52, 56, 58, 59, 66, 68) by [employer] Onclarity HR-HPV analysis. Clinical correlation is advised. This HPV test was performed at [facility], [address] [place] [address]. This test has been FDA approved for SurePath cervical cytology specimens. The accuracy and precision of this test for all other specimen sources has been verified in the Cytopathology Laboratory of the [facility] and has not been cleared or approved by the U.S. Food and Drug Administration. Clinical correlation is advised. CLINICAL HISTORY Date of Last Menstrual Period: 09-10-2020 Other Clinical Conditions: Screening Pap SPECIMEN SOURCE A: PAP SMEAR (SUREPATH) CE Patient Name: JANES FONTANA : 1980 (Age: 40) Sex: F Institution: [facility] Location: [facility] Date of Collection: 10/17/2020 Date of Reported: 10/21/2020 11:49 Results to: Karlene Doyle Amelia SALGADO us Karlene Cisneros TICKET WORKER CYTOLOGY ORDERABLES Ed ited Result - Final Performing Organization Address City/[facility]/ZIP Co de Phone Number SEE NARRATIVE * Hepatitis C antibody, qualitative (09/25/2020 4:50 PM EST) Blood us Karlene Robersonjayme TICKET WORKER LAB BLOOD BKR ORDERABL ES Final Result Performing Organization Address City/[facility] Co de Phone Number EXTERNAL NON-INTERFACED REF LAB from Last 3 Months or Most Recently Relevant to Health Maintenance Insurance [employer] NET PARTIAL [employer] NET PARTIAL HEALTH SAFETY NET PARTIAL HEALTH SAFETY NET PARTIAL HEALTH SAFETY NET PARTIAL HEALTH SAFETY NET PARTIAL HEALTH SAFETY NET PARTIAL HEALTH SAFETY NET PARTIAL HEALTH SAFETY NET PARTIAL Care Teams Product Development Manager Relationship Specialty Start Date End Date Unknown, Unknown, PCP - General 09/09/23 Radha Grijalva NP [email or web address] Historical LMR Provider 07/28/17 Additional Source Comments The information contained in this document represents components of the legal health record. It is not the complete legal health record.[facility]
--- NOTE | 2025-10-03 08:15 | A.OFFVIS_ITS ---
Vital Signs 10/03/25 08:20 Height 5 ft 1 in Weight 182 lb BMI 34.4 BP 122/64 Blood Pressure Location Rt brachial Position Sitting Pulse 78 Pulse Source Pulse Oximeter Pulse Oximetry (%) 97 Oxygen Delivery Method Room Air Intake Visit Reasons: s/p double Intake Note: Est pt for mgmt of GERD + CIC hx. S/P Double. Imaging Scheduled. CC: Pt denies any current GI sx or concerns. She reports that she has been taking PPI only PRN and has been making dietary adjustments to control her sx. She states that this has been going well for her overall. Curam Developer Required: No Accompanied by: Self / Same As Patient Allergies No Known Allergies (No Known Allergies*) Allergy (Verified 10/08/25 15:02) HPI HPI s/p double: Details: LAST VISIT: Chronic GERD Heartburn Postprandial abdominal bloating Rectal bleed Postprandial epigastric pain Plan Patient is not on any PPI and has not had anything to eat or drink in the past hour. Will do H pylori test in the office today. Will check for celiac and check lipase to rule out chronic pancreatitis. Patient reports family history of Crohn's disease will check CRP and fecal calprotectin. Patient reports no constipation, however her bowels are not regular sometimes she goes to the bathroom and sometimes it slows down what she feels like. Will check thyroid study, vitamin D, B12, folate. Patient also reports epigastric pain and sometimes pain in the right upper quadrant will check liver enzymes. Patient will be started on pantoprazole as she took that in the past and has worked for her. Patient will call if she will not be able to get it covered. Patient was encouraged to follow low FODMAP diet. List of food recommended as well as list of food to avoid given to patient. Increase fluid intake and activity to promote better bowel motility. Follow-up in the office in 3 months. We will discuss going for possible upper endoscopy and colonoscopy if she continues to have rectal bleed and pending diagnosis for IBD. She is agreeable to this plan and verbalizes understanding of instructions. She was given the opportunity to ask questions and all questions answered. ? Thank you for allowing me to participate in her care Orders H Pylori Breath Test 01/15/25 K21.9 Calprotectin, Fecal 01/15/25 R15.9 C Reactive Protein 01/15/25 K58.9 Transglutaminase IgA 01/15/25 R10.9 TSH reflex Free T4 01/15/25 K59.00 Vitamin B12 and Folate 01/15/25 R19.7 Vitamin D 25-OH (D2 and D3) 01/15/25 E55.9 Lipase 01/15/25 R10.9 Liver Panel 01/15/25 R74.01 New pantoprazole take one tablet half an hour before breakfast 40 mg PO DAILY 90 tabs 2RF K21.9 UPPER ENDOSCOPY AND COLONOSCOPY EGD Findings:? * Esophagus:? Normal esophageal mucosa was noted. The Z-line was at 32 cm displaced by a small hiatal hernia with the diaphragmatic pinch at 34 cm. Cold forceps biopsies were taken from middle and lower esophagus to rule out eos inophilic esophagitis. * Stomach:? Normal gastric mucosa. Retroflexion was performed in the cardia that showed Hill grade 3 hiatal hernia. Cold forceps biopsies were taken from the stomach body and antrum. * Duodenum:? Normal duodenal mucosa. Cold forceps biopsies were taken from the duodenal bulb and 2nd portion of the duodenum to rule out celiac sprue. Colonoscopy Procedure:? The patient was then turned for the colonoscopy. An abdominal binder was placed at the lower abdomen. A digital rectal exam was performed which was normal.? A distal attachment cap was affixed to the tip of the scope and the colonoscope was then inserted through the anus and advanced through the colon and advanced to the cecum at 70 cm and terminal ileum.? Appendiceal orifice and ileocecal valve were identified. Mucosa was carefully examined under high definition white light as the instrument was slowly withdrawn in a retrograde panoramic fashion. Retroflexion was performed in ascending colon and rectum. The procedure was not difficult. The quality of the prep was BBPS: 3+3+3 = adequate Withdrawal time 10 minutes Limitations: No limitations Findings: Mucosa: Normal colon and terminal ileum mucosa. Cold forceps biopsies were taken from the right and left side of the colon to rule out microscopic colitis. Protruding lesions: * 1 sessile polyp of size 2 mm noted in ascending colon. Cold snare polypectomy was performed. The polyp was completely removed and retrieved. * 1 sessile polyp of size 6 mm noted in transverse colon. Cold snare polypectomy was performed. The polyp was completely removed and retrieved. * Medium internal hemorrhoids without stigmata of recent bleeding. Impression: 1. Normal esophagus (biopsy) 2. Hiatal hernia 3. Normal stomach (biopsy) 4. Normal duodenum (biopsy) 5. Normal colon and terminal ileum mucosa (biopsy) 6. Total of 2 polyps removed 7. Internal hemorrhoids Recommendations:?? * Follow-up path results * Consider barium swallow exam * Avoid NSAIDs * H Pylori treatment if biopsies + * Repeat colonoscopy in 5 years if both polyps are adenomas otherwise 7 years. PATHOLOGY: Diagnosis A. Duodenum, biopsy: Duodenal mucosa within normal limits. B. Stomach, antrum, biopsy: Antral-type mucosa with moderate chronic inactive inflammation; no Helicobacter organisms seen. C. Stomach, body, biopsy: Oxyntic mucosa with mild chronic inactive inflammation; no Helicobacter organisms seen. D. Esophagus, lower, biopsy: Active esophagitis (maximum eosinophil count 6 per high powered field). E. Esophagus, middle, biopsy: Squamous epithelium within normal limits; no inflammation seen. F. Colon, ascending, polypectomy: Tubular adenoma; negative for high-grade dysplasia or carcinoma. G. Colon, right, biopsy: Colonic mucosa within normal limits. H. Colon, left, biopsy: Colonic mucosa within normal limits. I. Colon, transverse, polypectomy: Fragments of tubular adenoma; negative for high-grade dysplasia or carcinoma. TODAY'S VISIT Patient is here today for follow-up and to discuss upper endoscopy and colonoscopy results patient reports that she has been doing well since her procedure. Denies any ill effects from the prep, anesthesia or procedure itse lf. Patient reports that she made several dietary changes and is avoiding food that used to trigger her symptoms of acid reflux and dyspepsia. She is only taking pantoprazole as needed. Patient also reports that she lost weight on her own. Patient last 20 lb since last visit. Patient is going to continue to do that. Patient reports moving her bowels without any issues. Denies melena, hematochezia. Colonoscopy to tubular adenoma without high-grade dysplasia or carcinoma found and recommendation was for 5 year follow-up. [facility] Medical History BMI 36.0-36.9,adult Asthma Dyspareunia, female Pelvic pain Change in stool Heartburn Surgical History History of Family History Father Alive and well Mother Alive and well Paternal Grandmother Colon cancer Paternal Uncle FH: mental illness Substance abuse Alcoholism Narcotic abuse Family/Other Substance abuse Narcotic abuse Social History Housing: House Alcohol intake: never Patient Tobacco Use Status: Former Tobacco user e-Cigarette/Vaping Use: Never Used Second Hand Smoke Exposure: No Substance Use Type: Marijuana service: No Current occupational status: employed 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 Cognitive needs: No Hearing needs: No Vision needs: Yes Review of Systems Const Denies weight gain and Denies weight loss ENT Reports no additional complaints, Denies dysphagia and Denies odynophagia Card Reports no additional complaints Resp Reports no additional complaints GI Reports abdominal pain (Epigastric), Denies belching, Denies melena, Reports bloating (Occasional), Denies hematochezia, Denies change in bowel habits, Denies dysphagia, Denies excessive flatus, Reports dyspepsia, Denies heartburn (Occasional), Denies diarrhea, Denies loose stools, Denies nausea, Denies odynophagia and Denies vomiting Reports no additional complaints Musc Reports no additional complaints Neuro Reports no additional complaints Psych Reports no additional complaints Endo Reports no additional complaints Physical Exam Vital Signs: Last Vital Signs Pulse 78 10/03/25 08:20 BP 122/64 10/03/25 08:20 Pulse Ox 97 10/03/25 08:20 Oxygen Delivery Method Room Air 10/03/25 08:20 BMI result Body Mass Index 34.4 Const General: healthy appearing, no acute distress and well developed Nutritional Appearance: well nourished and obese Orientation/consciousness: patient oriented x3 Resp Effort & Inspection: normal respiratory effort, able to speak in complete sentences, no tracheal deviation and symmetric chest movement Auscultation: clear to auscultation bilaterally Cardio Rate: regular rate GI Inspection: Yes normal to inspection, No distended and Yes obesity Palpation (GI): Soft to palpation, not firm, nontender and No hepatosplenomegaly present Auscultation: normal bowel sounds General: Yes no CVA tenderness Back/Spine/Pelvis Back: no CVA tenderness Skin General skin exam: elasticity normal, turgor normal and dry skin Neuro General: patient oriented x3 Psych Appearance: grossly normal Mental Status: mental status grossly normal Assessment & Plan Assessment & Plan (1) Chronic GERD: Code(s): K21.9 - Gastro-esophageal reflux disease without esophagitis Category: Medical (2) Heartburn: Code(s): R12 - Heartburn Category: Medical (3) Postprandial abdominal bloating: Code(s): R14.0 - Abdominal distension (gaseous) (4) Rectal Hemorrhage: Code(s): K62.5 - Hemorrhage of anus and rectum (5) Postprandial epigastric pain: Code(s): R10.13 - Epigastric pain Plan Patient will continue to avoid dietary triggers and late night snacking. Staying upright for minimum 3 hours after meals discussed with patient. Increase fluid intake and activity to promote bowel motility. Patient will follow-up in the office in his 6 months, sooner on as needed basis. She is agreeable to this plan and verbalizes understanding of instructions. She was given the opportunity to ask questions and all questions answered. Thank you for allowing me to participate in her care Coding Level of Care Code Est Pt Level 4 (17844) Add On Problem Visit Only Diagnoses Chronic GERD K21.9 Heartburn R12 Postprandial abdominal bloating R14.0 Rectal Hemorrhage K62.5 Postprandial epigastric pain R10.13 Time Spent (min) 40 Comment 25 minutes spent with patient and additional 15 minutes spent reviewing her records
[2025-10-03 08:20] VITALS: BP 122/64; PULSE 78; O2SAT 97; BMI 34.4
== END 2025-10-03 08:37 | disposition home or self-care (01) ==
LOC: HO.HGI 08:09
PROVIDERS: PCP Nurse Practitioner Family; Visit Provider Nurse Practitioner Family
DX: K21.9 Gastro-esophageal reflux disease without esophagitis (principal); R12 Heartburn; R14.0 Abdominal distension (gaseous); K62.5 Hemorrhage of anus and rectum; R10.13 Epigastric pain
CPT/HCPCS: 99214; G2211

== ENCOUNTER 2025-10-08 13:40 | Outpatient (AMB) | payer OTHER, SELFPAY ==
--- NOTE | 2025-10-08 10:56 | A.OFFPC_ITS ---
Intake Visit Reasons: sleep study results Intake Note: Telehealth to review sleep study Grill Chef Required: No Allergies No Known Allergies (No Known Allergies*) Allergy (Verified 10/08/25 15:02) Tobacco use date assessed: 10/08/25 Dental Screening Dental Screen Date: 10/08/25 Did you have a dental visit in the last 12 months?: Yes Did you have a dental problem in the last 6 months where you did not have access to dental care?: No Was dental information given to patient?: Patient has dentist HPI HPI Comments 2 History of Present Illness0 Details Joy 45-year-old female with mild intermitten t asthma, GERD, bilat carpal tunnel, pancreatic calcification, obesity, ANEESH, MDD, Vit D def Status post Fhx aneurysm Health Maintenance: ?Mammo 04/2025 ?PAP 2023 [facility] ?Tdap 2023 Specialists: GI first appt in Jun 2024 DIRECTOR OF ENGINEERING Counseling Wt Mgmt, initial appt upcoming Optho wears glasses. UTD on eye exam History of Present Illness The patient is a 45 year old female presenting to review sleep study results. Obstructive sleep apnea: - The patient has a history of headaches . - A previous home sleep study showed epi sodes of low oxygen but did not reveal obstructive sleep apnea. - In lab sleep study reviewed w/ her tod ay, see below for details. - She expresses discomfort with having t hings on her face while sleeping and is unsure how well she will tolerate a CPAP machine, but is willing to try it. Patient made aware for continued coverage of CPAP therapy, documentation of compliance, including a [id number] re-evaluation by the treating physician and objective evidence of adherence (4 hours per night for 70% of nights in a 30-day period), is?required between the 31 and 90 day of therapy.? The patient is in agreement to start CPAP therapy. My office will coordinate a f/u in about 60 days. Review of Systems - Neurological: Reports a history of hea daches. - General: Reports feeling very uncomfor table with things on her face when sleeping, to the point she cannot sleep with bed sheets over her face. Results - Sleep Study: The recent study showed e pisodes of apnea, which were not detected on the prior home sleep study. - Oximetry: The study recorded 87 episod es of oxygen levels dropping below baseline, with the lowest oxygen level being 72% and an average of 92%. - The total time her oxygen saturation w as below 88% was 24.2 minutes. Assessment and Plan 1. Obstructive Sleep Apnea with Nocturna l Hypoxemia - The patient's recent sleep study confi rmed the diagnosis and revealed significant hypoxemia, with a ernst of 72% and 24.2 minutes spent with saturations less than 88% - Untreated, this condition increases th e risk for headaches, heart disease, and stroke. - She would benefit from CPAP therapy. - Although she expressed apprehension ab out using the machine due to discomfort, she has agreed to attempt treatment. - The patient will contact her insurance provider to determine their preferred durable medical equipment (DME) supplier for a CPAP machine and will notify the office via the patient portal. - Common local DME vendors mentioned inc [employer], [facility] [employer], and [employer]. - Once the vendor is identified, an orde r for a CPAP machine will be submitted. - Educated the patient that CPAP usage i s tracked remotely for insurance compliance. - A follow-up compliance visit will be s cheduled in approximately 90 days to review usage data and tolerance. - Discussed that if nocturnal hypoxemia persists despite CPAP use, supplemental oxygen may be added, although this is not anticipated. Patient was given time to ask questions. All questions were answered to their satisfaction. Telehealth Attestation This visit was conducted via a telehealth audio call, and this note is an accurate representation of the encounter. The patient has been explained that this is an interactive (audio/video) telehealth encounter and what that consists of. The patient understands and wishes to proceed. [employer] platform was used. Total time spent caring for the patient today was 16 minutes. This includes time spent before the visit reviewing the chart, time spent during the visit, and time spent after the visit on documentation, reviewing laboratory results, diagnostic imaging, medications, performing a medically necessary evaluation, counseling on diagnoses, care coordination, ordering appropriate tests, ordering appropriate medications, review of tests performed by other providers, reporting test results with the patient, communication with other healthcare providers. [facility] Medical History BMI 36.0-36.9,adult Asthma Dyspareunia, female Pelvic pain Change in stool Heartburn Surgical History History of Family History Father Alive and well Mother Alive and well Paternal Grandmother Colon cancer Paternal Uncle FH: mental illness Substance abuse Alcoholism Narcotic abuse Family/Other Substance abuse Narcotic abuse Social History Housing: House Alcohol intake: never Patient Tobacco Use Status: Former Tobacco user e-Cigarette/Vaping Use: Never Used Second Hand Smoke Exposure: No Substance Use Type: Marijuana service: No Current occupational status: employed 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 Raman Bates, Homa Noguera, Jakob Denton and colleagues, with an educational amberly from [employer]). Physical exam (Primary Care) Tobacco/Smoking Status: Tobacco use Status Tobacco use date assessed 10/08/25 10/08/25 15:03 Patient Tobacco Use Status Former Tobacco user 10/08/25 10:59 e-Cigarette/Vaping Use Never Used 10/08/25 10:59 Thrive Assessment: Date of Thrive Assessment Date Thrive assessed 05/25/25 10/08/25 10:59 Telehealth Telehealth Telehealth Platform: [facility] Location of provider rendering services: practice address Location of patient: address on file Patient Identification confirmed using: Name, : Yes Telehealth method: voice only Patient verbally consented to treatment: Yes Patient verbally consented to billing insurance company: Yes Patient informed of any privacy concerns related to visit: Yes Minutes spent on Phone/Video with Pt.: 8 Results Reviewed Results Reviewed: Coding Level of Care Code Tele Est Pt Level 2 (59539) Add On Problem Visit Only Diagnoses Encounter to discuss test results Z71.2 Nocturnal hypoxia G47.34 ANANT (obstructive sleep apnea) G47.33 Assessment & Plan Assessment & Plan (1) Encounter to discuss test results: Code(s): Z71.2 - Person consulting for explanation of examination or test findings Category: Medical (2) Nocturnal hypoxia: Code(s): G47.34 - Idiopathic sleep related nonobstructive alveolar hypoventilation Category: Medical (3) ANANT (obstructive sleep apnea): Onset Date: ~10/08/25 Comment: Settings 6-16 CM DME: Compliance: CPAP titration: Code(s): G47.33 - Obstructive sleep apnea (adult) (pediatric) Category: Medical Plan .
--- OUTSIDE RECORDS SUMMARY | 2025-10-08 15:51 | XMS_ITS | Clinical Summary ---
Author Organization [facility] Address [address] [place] [id number] Phone Care Team Providers Care Patient Safety Sitter Name Role Phone Valentine Radha Doyle SECTION LEADER AND MACHINE SETTER Unavailable [phone] Unknown, Unknown Primary Care Provider Unavai [...] SEE NARRATIVE - 10/22/2020 9:32 AM EST [address] [address] Transportation Services Representative: Nancy Fernandez MD TURNING AND BEADING MACHINE OPERATOR Cytology Report FINAL DIAGNOSIS A. PAP [...] 52, 56, 58, 59, 66, 68) by [employer] Onclarity HR-HPV analysis. Clinical correlation is advised. This HPV test was performed at [facility], [address] [place] [address]. This test has been FDA approved for SurePath cervical cytology specimens. The accuracy and precision of this test for all other specimen sources has been verified in the Cytopathology Laboratory of the [facility] and has not been cleared or approved by the U.S. Food and Drug Administration. Clinical correlation is advised. CLINICAL HISTORY Date of Last Menstrual Period: 09-10-2020 Other Clinical Conditions: Screening Pap SPECIMEN SOURCE A: PAP SMEAR (SUREPATH) CE Patient Name: JANES FONTANA : 1980 (Age: 40) Sex: F Institution: [facility] Location: [facility] Date of Collection: 10/17/2020 Date of Reported: 10/21/2020 11:49 Results to: Karlene Doyle Amelia SALGADO us Karlene Cisneros JOURNEYMAN ELECTRICIAN PV INSTALLER CYTOLOGY ORDERABLES Ed ited Result - Final Performing Organization Address City/[facility]/ZIP Co de Phone Number SEE NARRATIVE * Hepatitis C antibody, qualitative (09/25/2020 4:50 PM EST) Blood us Karlene Robersonjayme JOURNEYMAN ELECTRICIAN PV INSTALLER LAB BLOOD BKR ORDERABL ES Final Result Performing Organization Address City/[facility] Co de Phone Number EXTERNAL NON-INTERFACED REF LAB from Last 3 Months or Most Recently Relevant to Health Maintenance Insurance [employer] NET PART[employer] HE[employer] SAFETY NET PART[employer] HE[employer] SAF[employer]Y [employer] PARTIAL Care Teams Patient Safety Sitter Relationship Specialty Start Date End Date Unknown, Unknown, PCP - General 09/09/23 Radha Grijalva NP [email or web address] Historical LMR Provider 07/28/17 Additional Source Comments The information contained in this document represents components of the legal health record. It is not the complete legal health record.[facility]
== END 2025-10-08 15:25 | disposition home or self-care (01) ==
LOC: HO.HMCFM 13:40
PROVIDERS: PCP Nurse Practitioner Family; Visit Provider Nurse Practitioner Family
DX: Z71.2 Person consulting for explanation of examination or test findings (principal); G47.34 Idiopathic sleep related nonobstructive alveolar hypoventilation; G47.33 Obstructive sleep apnea (adult) (pediatric)